=== PATIENT | male | born 1970 ===

== ENCOUNTER 2016-05-13 07:47 | Observation (INO) | payer OTHER ==
[2016-05-13 07:51] VITALS: BMI 24.9
[2016-05-13] MEDS ORDERED: Sodium Chloride 0.9% 1,000 ML IV STA (08:57)
[2016-05-13 09:32] LABS: BASO % 0.5 % (0.0-2.0); EOS # 0.2 K/uL (0.0-0.7); EOS % 2.7 % (0.0-4.0); HEMATOCRIT 43.7 % (35.0-51.0); LYMPH # 2.7 K/uL (1.0-4.3); LYMPH % 45.7 % (20.0-40.0); MEAN CELL VOLUME 86.6 fL (80.0-94.0); MEAN CORPUSCULAR HEMOGLOBIN 29.4 pg (27.0-31.0); MEAN CORPUSCULAR HGB CONC 33.9 g/dL (33.0-37.0); MEAN PLATELET VOLUME 7.6 fL (7.2-11.7); MONO # 0.4 K/uL (0.0-0.8); MONO % 6.1 % (0.0-10.0); NRBC % 0.1 % (0.0-2.0); RED CELL DISTRIBUTION WIDTH 13.9 % (11.5-14.5)
[2016-05-13 09:35] LABS: RBC URINE < 1 /hpf (0-3); URINE BILIRUBIN NEGATIVE (NEGATIVE); URINE BLOOD 1+ (NEGATIVE); URINE COLOR Colorless (YELLOW); URINE GLUCOSE (UA) NORMAL (Normal); URINE KETONE NEGATIVE (NEGATIVE); URINE LEUKOCYTE ESTERASE NEG Leu/uL (Negative); URINE PROTEIN NEGATIVE (NEGATIVE); URINE UROBILINOGEN NORMAL mg/dL (0.2-1.0); WBC URINE < 1 /hpf (0-5)
[2016-05-13 09:45] LABS: CHLORIDE 99 mmol/L (98-107); SODIUM 140 mmol/L (132-148)
[2016-05-13 09:47] LABS: BILIRUBIN,TOTAL 0.4 mg/dL (0.2-1.3); CARBON DIOXIDE 25 mmol/L (22-30); GFR AFRICAN-AMERICAN > 60
[2016-05-13 09:48] LABS: ALB/GLOB RATIO 1.3 (1.0-2.1); ALKALINE PHOSPHATASE 82 U/L (38-126); ALT/SGPT 68 U/L (21-72); AST/SGOT 47 U/L (17-59); BLOOD UREA NITROGEN 14 mg/dL (9-20); CALCIUM 8.8 mg/dl (8.6-10.4); GLUCOSE,RANDOM 91 mg/dL (75-110); TOTAL PROTEIN 7.7 g/dL (6.3-8.3)
[2016-05-13] MEDS ORDERED: Sodium Chloride 0.9% 1,000 ML ONE ×2 (09:48→17:12)
--- NOTE | 2016-05-13 09:48 | C.PDOC ---
History Of Present Illness 46 y/o male presents to the ED complaining of feeling dizzy since yesterday. He states that it feels like the room is spinning. Patient also reports that this morning when he woke up he had midsternal chest pain but it resolved spontaneously after approximately 15-20 minutes. Patient admits to some nausea and blurred vision but denies any vomiting, fever, chills, shortness of breath, abdominal pain or other complaints. Time Seen by Provider: 05/13/16 08:09 Chief Complaint (Nursing): Dizziness/Lightheaded History Per: Patient History/Exam Limitations: no limitations Onset/Duration Of Symptoms: Days (1), Persistent Current Symptoms Are (Timing): Still Present Fall Associated With With Symptoms: No Recent travel outside of the [place]: No Past Medical History Reviewed: Historical Data, Nursing Documentation, Vital Signs Vital Signs: Last Vital Signs Temp 97.5 F L 05/13/16 07:51 Pulse 48 L 05/13/16 11:05 Resp 20 05/13/16 11:05 BP 113/74 05/13/16 11:05 Pulse Ox 96 05/13/16 11:05 - Medical History PMH: Anxiety Surgical History: Appendectomy - [facility] Procedures RESECTION OF APPENDIX, PERCUTANEOUS ENDOSCOPIC APPROACH (12/31/15) Family History: States: No Known Family Hx - Social History Hx Tobacco Use: No Hx Alcohol Use: Yes Hx Substance Use: No - Immunization History Hx Tetanus Toxoid Vaccination: No Hx Influenza Vaccination: Yes (2016) Hx Pneumococcal Vaccination: No Review Of Systems Except As Marked, All Systems Reviewed And Found Negative. Constitutional: Negative for: Fever, Chills Eyes: Positive for: Other (blurred vision) Cardiovascular: Positive for: Chest Pain (resolved) Respiratory: Negative for: Shortness of Breath Gastrointestinal: Negative for: Vomiting, Abdominal Pain Neurological: Positive for: Dizziness Physical Exam - Physical Exam Appears: Non-toxic, No Acute Distress Skin: Normal Color, Warm, Dry Head: Atraumatic, Normacephalic Eye(s): bilateral: Normal Inspection, PERRL, EOMI Neck: Normal ROM, Supple Chest: Symmetrical, No Tenderness Cardiovascular: Rhythm Regular Respiratory: Normal Breath Sounds, No Rales, No Rhonchi, No Wheezing Gastrointestinal/Abdominal: Normal Exam, Soft, No Tenderness Back: Normal Inspection Extremity: Normal ROM, No Tenderness, No Swelling Neurological/Psych: Oriented x3, Normal Speech, Normal Cognition, Normal Cranial Nerves (II-XII intact), Normal Motor, Normal Sensation ED Course And Treatment - Laboratory Results Result Diagrams: 05/13/16 09:27 05/13/16 09:27 ECG: Interpreted By Me ECG Rhythm: Sinus Bradycardia ECG Interpretation: No Acute Changes Rate From EC (bpm) O2 Sat by Pulse Oximetry: 95 (ra) Pulse Ox Interpretation: Normal - Other Rad Chest X-Ray X-Ray: Viewed By Me, Read By Radiologist Interpretation: Accession No. : [id number]. Patient Name / ID : FREDERICK DILL / [id number]. Exam Date : 05/13/2016 09:22:17 ( Approved ). Study Comment : Sex / Age : M / 46Y. Creator : Alistair Muñoz MD. Dictator : Alistair Muñoz MD. Funeral Driver : Used Car Lot Attendant : Alistair Muñoz MD. Approver2 : Report Date : 05/13/2016 10:12:28. My Comment : . PROCEDURE: CHEST RADIOGRAPH, 1 VIEW. HISTORY: dizzy, CP. COMPARISON: None available. FINDINGS: LUNGS: Clear. PLEURA: No pneumothorax or pleural fluid seen. CARDIOVASCULAR: Normal. OSSEOUS STRUCTURES: No significant abnormalities. VISUALIZED UPPER ABDOMEN: Normal. OTHER FINDINGS: None. IMPRESSION: No active disease. - CT Scan/US CT Head Other Rad Studies (CT/US): Read By Radiologist, Radiology Report Reviewed CT/US Interpretation: Accession No. : [id number]. Patient Name / ID : FREDERICK DILL / [id number]. Exam Date : 05/13/2016 09:34:59 ( Approved ). Study Comment : Sex / Age : M / 46Y. Creator : Alistair Muñoz MD. Dictator : Alistair Muñoz MD. Funeral Driver : [employer] Car Lot Attendant : Alistair Muñoz MD. Approver2 : Report Date : 05/13/2016 09:55:25. My Comment : . PROCEDURE: CT HEAD WITHOUT CONTRAST. HISTORY: Dizzy, CP. COMPARISON: None available. TECHNIQUE: Axial computed tomography images were obtained through the head/brain without intravenous contrast. Radiation dose: Total exam DLP = 915 mGy-cm. FINDINGS: HEMORRHAGE: No intracranial hemorrhage. BRAIN: No mass effect or edema. No atrophy or chronic microvascular ischemic changes. VENTRICLES: Unremarkable. No hydrocephalus. CALVARIUM: Unremarkable. PARANASAL SINUSES: Unremarkable as visualized. No significant inflammatory changes. MASTOID AIR CELLS: Unremarkable as visualized. No inflammatory changes. OTHER FINDINGS: None. IMPRESSION: Normal CT of the Head. Progress Note: CT head, EKG, Chest X-Ray, Blood Work, and Urinalysis were ordered. Patient was treated with Antivert PO and IV Fluids. Patient was accepted to telemetry observation under the care of Dr. Asiya Marte. Disposition - Disposition Disposition: HOSPITALIZED Disposition Time: 10:58 Condition: FAIR - Clinical Impression Clinical Impression: Dizziness, Chest pain - PA / SHELL REPRINT OPERATOR / Resident Statement MD/DO has reviewed & agrees with the documentation as recorded. - Scribe Statement The provider has reviewed the documentation as recorded by the Scribe (Cristina Easton) All medical record entries made by the Scribe were at my direction and personally dictated by me. I have reviewed the chart and agree that the record accurately reflects my personal performance of the history, physical exam, medical decision making, and the department course for this patient. I have also personally directed, reviewed, and agree with the discharge instructions and disposition. Decision To Admit - Pt Status Changed To: Hospital Disposition Of: Observation - . Bed Request Type: Telemetry Admitting Physician: Asiya Marte Patient Diagnosis: Dizziness, Chest pain
--- NOTE | 2016-05-13 09:57 | CT ---
PROCEDURE: CT HEAD WITHOUT CONTRAST. HISTORY: Dizzy, CP COMPARISON: None available. TECHNIQUE: Axial computed tomography images were obtained through the head/brain without intravenous contrast. Radiation dose: Total exam DLP = 915 mGy-cm. FINDINGS: HEMORRHAGE: No intracranial hemorrhage. BRAIN: No mass effect or edema. No atrophy or chronic microvascular ischemic changes. VENTRICLES: Unremarkable. No hydrocephalus. CALVARIUM: Unremarkable. PARANASAL SINUSES: Unremarkable as visualized. No significant inflammatory changes. MASTOID AIR CELLS: Unremarkable as visualized. No inflammatory changes. OTHER FINDINGS: None. IMPRESSION: Normal CT of the Head.
--- NOTE | 2016-05-13 10:14 | RAD ---
PROCEDURE: CHEST RADIOGRAPH, 1 VIEW HISTORY: dizzy, CP COMPARISON: None available. FINDINGS: LUNGS: Clear. PLEURA: No pneumothorax or pleural fluid seen. CARDIOVASCULAR: Normal. OSSEOUS STRUCTURES: No significant abnormalities. VISUALIZED UPPER ABDOMEN: Normal. OTHER FINDINGS: None. IMPRESSION: No active disease.
[2016-05-13] MEDS ORDERED: Gadodiamide 287 MG/ML VIAL (15ML) IV ONE (16:00)
[2016-05-13] MEDS ORDERED: Sodium Chloride 0.9% 1,000 ML IV SCH (16:00)
--- NOTE | 2016-05-13 17:12 | MRI ---
PROCEDURE: MRI BRAIN WITH AND WITHOUT CONTRAST HISTORY: vertical double vision dizziness COMPARISON: None. TECHNIQUE: Multiplanar, multisequence MR images of the brain were obtained with and without intravenous contrast enhancement. 13 cc of Omniscan FINDINGS: HEMORRHAGE: None DWI: No evidence of an acute or early subacute infarction. BRAIN PARENCHYMA: No mass,mass effect or edema. No atrophy or chronic microvascular ischemic changes. ENHANCEMENT: No abnormal intracranial enhancement. VENTRICLES: Unremarkable. No hydrocephalus. CRANIUM: Unremarkable. ORBITS: Grossly unremarkable. PARANASAL SINUSES/MASTOIDS: Clear VASCULAR SYSTEM: Skull base flow voids intact. OTHER FINDINGS: None . IMPRESSION: Unremarkable pre and post contrast enhanced MRI of the brain.
[2016-05-13] MEDS: Aritificial Tears (15ml) OU SCH (17:33)
--- NOTE | 2016-05-13 18:21 | CP.PCM.HP ---
<Lyudmila Cramer - Last Filed: 05/13/16 18:37> History of Present Illness - History of Present Illness History of Present Illness: CC - "Dizziness and blurry/double vision" HPI - 46 y/o male presents to the ED complaining of feeling dizzy since yesterday. He states that it feels like the room is spinning. He reports that when he woke up yesterday morning he was dizzy like "I am sitting in a hammock" , and also associated with lateral double and blurry vision. He states that he has never experienced this before. He has not had eye problems in the past and has no seen and eye doctor. He reports itchiness to the R eye but denies pain and denies pain with ocular movements. The patient denies trauma to the eyes. He denies crust, discharge, or bleeding from the eyes. He denies floaters or flashing lights. He did not spill anything in his eye and he is not using any new lotions, cologne or fragrances. He reports that it is difficult for him to "read lines in a book". Per the ED note the patient also reports that this morning when he woke up he had midsternal chest pain but it resolved spontaneously after approximately 15-20 minutes. He is not having chest pain now and this has not occurred in the past. Patient admits to some nausea but all other complaints denied vomiting, fever, chills, shortness of breath, abdominal pain or other complaints. PMHX - appendicitis, does not follow up with any doctors, can't remember the last time he saw one Surg - laparoscopic appendectomy 12/31/15 Meds - none Allergies - pollen Fam Hx - mother diabetes Social - denies drug, alcohol, tobacco use. he works at a [employer] station PMD - none, has missed clinic visits at [facility] because he stated he felt fine so he didn't go Present on Admission - Present on Admission Any Indicators Present on Admission: No Review of Systems - Constitutional Constitutional: absent: Chills, Fever - EENT Eyes: Blurred Vision, Change in Vision, Diplopia, Dry Eye. absent: Blind Spots , Discharge, Floaters, Photophobia, Sees Flashes, Spots in Vision, Loss of Vision Ears: Dizziness. absent: Decreased Hearing, Ear Discharge, Ear Pain, Tinnitus, Abnormal Hearing Nose/Mouth/Throat: absent: Nasal Congestion, Nasal Discharge, Sinus Pain, Sinus Pressure, Dysphagia, Sore Throat, Facial Pain, Neck Pain - Cardiovascular Cardiovascular: absent: Chest Pain, Chest Pain at Rest, Diaphoresis, Leg Edema, Palpitations, Pedal Edema, Syncope - Respiratory Respiratory: absent: Cough, Dyspnea, Dyspnea on Exertion - Gastrointestinal Gastrointestinal: Nausea. absent: Abdominal Pain, Constipation, Diarrhea, Vomiting - Genitourinary Genitourinary: absent: Change in Urinary Stream, Difficulty Urinating - Musculoskeletal Musculoskeletal: absent: Abnormal Gait, Arthralgias, Back Pain, Muscle Cramps, Muscle Weakness, Neck Pain, Numbness, Tingling - Neurological Neurological: Dizziness, Vertigo, Other Visual Disturbances (as described above) . absent: Abnormal Hearing, Numbness, Headaches, Sensory Deficit, Syncope, Tingling, Weakness - Endocrine Endocrine: absent: Fatigue, Palpitations - Hematologic/Lymphatic Hematologic: absent: Easy Bleeding, Easy Bruising Past Patient History - Infectious Disease Hx of Infectious Diseases: None - Past Medical History & Family History Past Medical History?: No - Past Social History Smoking Status: Never Smoked - CARDIAC Hx Cardiac Disorders: No - PULMONARY Hx Respiratory Disorders: No - NEUROLOGICAL Hx Neurological Disorder: No - HEENT Hx HEENT Problems: No - RENAL Hx Chronic Kidney Disease: No - ENDOCRINE/METABOLIC Hx Diabetes Mellitus Type 1: No Hx Diabetes Mellitus Type 2: No - HEMATOLOGICAL/ONCOLOGICAL Hx Blood Disorders: No - INTEGUMENTARY Hx Dermatological Problems: No - MUSCULOSKELETAL/RHEUMATOLOGICAL Hx Musculoskeletal Disorders: No Hx Falls: No - GENITOURINARY/GYNECOLOGICAL Hx Genitourinary Disorders: No - PSYCHIATRIC Hx Anxiety: Yes Hx Substance Use: No - SURGICAL HISTORY Hx Appendectomy: Yes - ANESTHESIA Hx Anesthesia: No (this admission first time) Hx Anesthesia Reactions: No Hx Malignant Hyperthermia: No Meds Allergies/Adverse Reactions: Allergies Allergy/AdvReac Type Severity Reaction Status Date / Time No Known Allergies Allergy Verified 05/13/16 07:50 Physical Exam - Constitutional Appears: Non-toxic, No Acute Distress - Head Exam Head Exam: ATRAUMATIC, NORMAL INSPECTION - Eye Exam Eye Exam: Conjunctival injection, EOMI. absent: Periorbital swelling, Scleral icterus Pupil Exam: NORMAL ACCOMODATION, PERRL Additional comments: b/l erythema more on the R, no signs of trauma, no blood, visual mariano in tact , visual screening wnl, no discharged noted. EOMI slow at tracking, no nystagmus , equil and reactive - ENT Exam ENT Exam: Mucous Membranes Moist - Neck Exam Neck exam: Positive for: Normal Inspection - Respiratory Exam Respiratory Exam: Clear to Auscultation Bilateral, NORMAL BREATHING PATTERN. absent: Accessory Muscle Use, Chest Wall Tenderness, Rales, Rhonchi, Wheezes, Respiratory Distress - Cardiovascular Exam Cardiovascular Exam: REGULAR RHYTHM, +S1, +S2. absent: Diastolic murmur, JVD, Systolic Murmur - GI/Abdominal Exam GI & Abdominal Exam: Normal Bowel Sounds, Soft. absent: Distended, Guarding, Tenderness - Extremities Exam Extremities exam: Positive for: full ROM, normal inspection, pedal pulses present. Negative for: calf tenderness, pedal edema - Back Exam Back exam: NORMAL INSPECTION. absent: CVA tenderness (L), CVA tenderness (R), paraspinal tenderness - Neurological Exam Neurological exam: Alert, CN II-XII Intact, Oriented x3 - Psychiatric Exam Psychiatric exam: Normal Affect, Normal Mood - Skin Skin Exam: Dry, Intact, Normal Color, Warm Results - Vital Signs Recent Vital Signs: Last Vital Signs Temp 97.7 F 05/13/16 17:47 Pulse 60 05/13/16 17:47 Resp 20 05/13/16 17:47 BP 103/65 05/13/16 17:47 Pulse Ox 95 05/13/16 17:50 - Labs Result Diagrams: 05/13/16 09:27 05/13/16 09:27 Assessment & Plan - Assessment and Plan (Free Text) Assessment: Diplopia Vertical, with blurry vision Heat CT - negative, no intracranial bleed or actue pathology MRI brain w and w/o contrast - normal Optho consulted, Dr. Franco consulted - Pt can follow up in office [address] at 9 AM this Tuesday Artifical tears Dizziness likely vertigo Neurology consulted, Dr. Duarte consulted - help appreciated, all orders are placed Heat CT - negative, no intracranial bleed or actue pathology MRI brain w and w/o contrast - normal UA - 1+ blood otherwise normal UDS - negative Meclizine prn Chest pain Resolved but will rule out ND with troponins Chest X ray - no active disease EKG - NSR bradycardia at 57 bpm Troponin neg x 2 will trend a third troponin with another EKG f/u AM labs, tsh/free t4, lipid panel, HbA1c ASA 81 mg PO daily Prophylactic Measures Pepcid 20 mg PO BID DVT - SCDs Heart healthy diet Physical therapy NS at 100 cc/hour <Asiya Marte V - Last Filed: 05/14/16 10:49> Results - Vital Signs Recent Vital Signs: Last Vital Signs Temp 98 F 05/14/16 07:05 Pulse 60 05/14/16 07:05 Resp 17 05/14/16 07:05 BP 109/66 05/14/16 07:05 Pulse Ox 95 05/14/16 07:05 - Labs Result Diagrams: 05/14/16 01:04 05/14/16 01:04 Labs: Laboratory Results - last 24 hr 05/13/16 05/14/16 05/14/16 18:07 01:04 04:12 WBC 6.7 RBC 4.88 Hgb 14.2 Hct 42.4 MCV 87.0 MCH 29.2 MCHC 33.6 RDW 13.5 Plt Count 255 MPV 7.0 L Neut % (Auto) 49.3 L Lymph % (Auto) 40.9 H Orange % (Auto) 5.7 Eos % (Auto) 3.5 Baso % (Auto) 0.6 Neut # 3.3 Lymph # 2.7 Orange # 0.4 Eos # 0.2 Baso # 0.0 ESR 3 Sodium 140 Potassium 4.3 Chloride 106 Carbon Dioxide 24 Anion Gap 14 BUN 14 Creatinine 1.0 Est GFR ( Amer) > 60 Est GFR (Non-Af Amer) > 60 Random Glucose 92 Hemoglobin A1c 5.9 Calcium 8.2 L Phosphorus 3.9 Magnesium 1.8 Total Bilirubin 0.6 AST 35 ALT 65 Alkaline Phosphatase 58 Total Creatine Kinase 129 115 CK-MB (Mass) 0.53 0.38 Troponin I, Quant < 0.0120 < 0.0120 C-React Prot High Sens 0.68 L Total Protein 6.5 Albumin 3.4 L D Globulin 3.1 Albumin/Globulin Ratio 1.1 Triglycerides 279 H Cholesterol 182 LDL Cholesterol Direct 110 HDL Cholesterol 17 L Free T4 0.82 TSH 3rd Generation 5.47 H Attending/Attestation - Attestation I have personally seen and examined this patient.: Yes I have fully participated in the care of the patient.: Yes I have reviewed all pertinent clinical information: Yes Notes (Text): This is late computer entry for 05/13/16. Patient seen, examined, and case discussed with day-time resident. Patient seen in [facility] on 05/13/16 seen approximately 1:30PM with the resident at bedside. Patient reporting a day and half history of double vision. Patient reports he sees images on top of each of each other. patient denies pain and denies pain within the eye. Patient does not wear eye glasses. patient denies trauma to head , denies prior history of car accidents. Patient reports he has not seen a doctor in quite sometime and has not had his eyes checked. Patient works at [employer], denies chemical splashover, does not wear protective wear. Patient denies discharge from the eyes. patient reports itchiness over the eye right and reports seasonal allergies. Patient denies URI type symptoms, denies cough, denies lightheaded, denies chest pain now but reports this morning he had fluttering in the chest, at rest, lasted for seconds, did not take anything for it but it resolved on its own. Patient reports unsteady gait. Patient denies passing out. Patient denies drug use. In the ED, received Aspirin 325mg PO X1 and CT Head: negative Discussed admitting orders with day-time resident. Recommend for neurology and ophthalmology consults. Assessment/Plan 1) Diplopia Vertical, with blurry vision Heat CT (05/13/16) - negative, no intracranial bleed or actue pathology ordered and completed MRI brain w and w/o contrast (05/13/16) - normal Ordered for Artifical tears Consult: Dr Duarte (neurology) on board-->help appreciated Consult: Dr. Franco (ophthalmology) on board-->help appreciated; recommended pt can follow up in office [address] at 9 AM this Tuesday 2) Dizziness likely vertigo Consult: Dr Duarte (neurology) on board-->help appreciated Heat CT (05/13/16) - negative, no intracranial bleed or actual pathology MRI brain w and w/o contrast (05/13/16) - normal UA - 1+ blood otherwise normal-->repeat UA UDS - negative Meclizine prn 3) Chest pain Resolved at bedside Patient has no prior cardiac risk factors Chest X ray (3/30/17) - no active disease EKG (05/13/16) - NSR bradycardia at 57 bpm Troponin neg x 2 will trend a third troponin with another EKG f/u AM labs, tsh/free t4, lipid panel, HbA1c in AM ASA 81 mg PO daily as prophylactic measure 4) Prophylactic Measures Pepcid 20 mg PO BID for GI ppx DVT - SCDs for DVT ppx PT Eval Heart healthy diet NS at 100 cc/hour
--- NOTE | 2016-05-13 20:32 | CARD ---
APPROVED REPORT EXAM: Two-dimensional and M-mode echocardiogram with Doppler and color Doppler. Other Information Quality : GoodRhythm : NSR INDICATION Dizziness and Vertigo Chest Pain M-Mode DIMENSIONS RVDd2.08 (2.1-3.2cm)Left Atrium (MM)2.57 (2.5-4.0cm) IVSd0.88 (0.7-1.1cm)Aortic Root3.48 (2.2-3.7cm) LVDd5.37 (4.0-5.6cm)Aortic Cusp Exc.2.11 (1.5-2.0cm) PWd0.85 (0.7-1.1cm)FS (%) 45 % LVDs2.93 (2.0-3.8cm)LVEF (%)76 (>50%) Mitral Valve MV E Flewhuyi87.2cm/sMV A Wsjmasbw32.7cm/sE/A ratio1.5 TDI E/Lateral E'0.0E/Medial E'0.0 Tricuspid Valve TR Peak [id number]/sTR Peak [id number] LEFT VENTRICLE The left ventricle is normal size. There is normal left ventricular wall thickness. The left ventricular function is normal. The left ventricular ejection fraction is within the normal range. About 65% No regional wall motion abnormalities noted. The left ventricular diastolic function is normal. No left ventricle thrombus noted on this study. There is no ventricular septal defect visualized. There is no left ventricular aneurysm. There is no mass noted in the left ventricle. RIGHT VENTRICLE The right ventricle is normal size. There is normal right ventricular wall thickness. The right ventricular systolic function is normal. ATRIA The left atrium size is normal. The right atrium size is normal. The interatrial septum is intact with no evidence for an atrial septal defect. AORTIC VALVE The aortic valve is normal in structure and function. No aortic regurgitation is present. There is no aortic valvular stenosis. There is no aortic valvular vegetation. MITRAL VALVE The mitral valve is normal in structure and function. There is no evidence of mitral valve prolapse. There is no mitral valve stenosis. There is no mitral valve regurgitation noted. TRICUSPID VALVE The tricuspid valve is normal in structure and function. There is mild tricuspid valve regurgitation noted. There is no tricuspid valve prolapse or vegetation. There is no tricuspid valve stenosis. PULMONIC VALVE The pulmonary valve is normal in structure and function. There is no pulmonic valvular regurgitation. There is no pulmonic valvular stenosis. GREAT VESSELS The aortic root is normal in size. The ascending aorta is normal in size. The pulmonary artery is normal. The IVC is normal in size and collapses >50% with inspiration. PERICARDIAL EFFUSION The pericardium appears normal. There is no pleural effusion. <Conclusion> Normal Study
[2016-05-14 01:09] LABS: BASO % 0.6 % (0.0-2.0); EOS # 0.2 K/uL (0.0-0.7); EOS % 3.5 % (0.0-4.0); HEMATOCRIT 42.4 % (35.0-51.0); LYMPH # 2.7 K/uL (1.0-4.3); LYMPH % 40.9 % (20.0-40.0); MEAN CORPUSCULAR HEMOGLOBIN 29.2 pg (27.0-31.0); MEAN CORPUSCULAR HGB CONC 33.6 g/dL (33.0-37.0); MONO # 0.4 K/uL (0.0-0.8); MONO % 5.7 % (0.0-10.0); RED CELL DISTRIBUTION WIDTH 13.5 % (11.5-14.5); WHITE BLOOD COUNT 6.7 K/uL (4.8-10.8)
[2016-05-14 01:23] LABS: CHLORIDE 106 mmol/L (98-107); SODIUM 140 mmol/L (132-148)
[2016-05-14 01:24] LABS: POTASSIUM 4.3 mmol/L (3.6-5.2)
[2016-05-14 01:25] LABS: CARBON DIOXIDE 24 mmol/L (22-30); CHOLESTEROL 182 mg/dL (0-199); GFR AFRICAN-AMERICAN > 60
[2016-05-14 01:26] LABS: ALB/GLOB RATIO 1.1 (1.0-2.1); ALKALINE PHOSPHATASE 58 U/L (38-126); ALT/SGPT 65 U/L (21-72); AST/SGOT 35 U/L (17-59); BILIRUBIN,TOTAL 0.6 mg/dL (0.2-1.3); BLOOD UREA NITROGEN 14 mg/dL (9-20); CALCIUM 8.2 mg/dl (8.6-10.4); GLUCOSE,RANDOM 92 mg/dL (75-110); PHOSPHOROUS 3.9 mg/dL (2.5-4.5); TOTAL PROTEIN 6.5 g/dL (6.3-8.3)
[2016-05-14 01:27] LABS: MAGNESIUM 1.8 mg/dL (1.6-2.3)
[2016-05-14 02:00] LABS: THYROID STIMULATING HORMONE 5.47 mIU/L (0.46-4.68)
[2016-05-14] MEDS: Aritificial Tears (15ml) OU SCH (09:36)
--- NOTE | 2016-05-14 12:01 | CP.PCM.CON ---
History of Present Illness - History of Present Illness History of Present Illness: Mr. José Escoto is a 46-year-old man with no significant past medical history who states that he has been feeling dizzy for the last few days and has also been experiencing difficulty with his vision. The dizziness is more clearly described as a spinning sensation or feeling like he is swinging. He was given Meclizine and states that today his dizziness is gone. He still complains of some blurry vision and itchy eyes. This morning he was having a headache that is located on the top of the head and radiates toward the front. It is a 3/10 in severity. He denied nausea, vomiting, weakness, sensory loss or any difficulty with ambulation. Review of Systems - Review of Systems All systems: reviewed and no additional remarkable complaints except - Constitutional Constitutional: As Per HPI - EENT Eyes: As Per HPI Nose/Mouth/Throat: As Per HPI - Musculoskeletal Musculoskeletal: As Per HPI - Neurological Neurological: As Per HPI - Psychiatric Psychiatric: As Per HPI Past Patient History - Infectious Disease Hx of Infectious Diseases: None - Past Medical History & Family History Past Medical History?: No - Past Social History Smoking Status: Never Smoked - CARDIAC Hx Cardiac Disorders: No - PULMONARY Hx Respiratory Disorders: No - NEUROLOGICAL Hx Neurological Disorder: No - HEENT Hx HEENT Problems: No - RENAL Hx Chronic Kidney Disease: No - ENDOCRINE/METABOLIC Hx Diabetes Mellitus Type 1: No Hx Diabetes Mellitus Type 2: No - HEMATOLOGICAL/ONCOLOGICAL Hx Blood Disorders: No - INTEGUMENTARY Hx Dermatological Problems: No - MUSCULOSKELETAL/RHEUMATOLOGICAL Hx Musculoskeletal Disorders: No Hx Falls: No - GENITOURINARY/GYNECOLOGICAL Hx Genitourinary Disorders: No - PSYCHIATRIC Hx Anxiety: Yes Hx Substance Use: No - SURGICAL HISTORY Hx Appendectomy: Yes - ANESTHESIA Hx Anesthesia: Yes Hx Anesthesia Reactions: No Hx Malignant Hyperthermia: No Meds Allergies/Adverse Reactions: Allergies Allergy/AdvReac Type Severity Reaction Status Date / Time No Known Allergies Allergy Verified 05/13/16 07:50 - Medications Medications: Current Medications Artificial Tears (Artificial Tears) 0 ml OU DAILY [facility] Last Admin: 05/14/16 09:36 Dose: 1 drop Aspirin (Aspirin Chewable) 81 mg PO DAILY [facility] Last Admin: 05/14/16 09:36 Dose: 81 mg Famotidine (Pepcid) 20 mg PO BID [facility] Last Admin: 05/14/16 09:36 Dose: 20 mg Meclizine HCl (Antivert) 12.5 mg PO Q12 PRN PRN Reason: Dizziness Physical Exam - Constitutional Appears: Well - Head Exam Head Exam: ATRAUMATIC, NORMAL INSPECTION, NORMOCEPHALIC - Eye Exam Eye Exam: Conjunctival injection, EOMI, Normal appearance, PERRL - Neck Exam Neck exam: Positive for: Normal Inspection - Cardiovascular Exam Cardiovascular Exam: REGULAR RHYTHM - Neurological Exam Neurological exam: Alert, CN II-XII Intact, Normal Gait, Oriented x3, Reflexes Normal - Expanded Neurological Exam Expanded Cranial nerves: EOM's Intact: Normal, Facial Sensation: Normal, Tongue Deviation : Normal Cerebellar Function: Finger to Nose: Normal, Heel to Head: Normal, Romberg: Normal Upper motor neuron: Babinski Sign: Normal Neuro motor strength exam: Left Upper Extremity: 5, Right Upper Extremity: 5, Left Lower Extremity: 5, Right Lower Extremity: 5 DTR: Achilles Tendon Left: 2+, Achilles Tendon Right: 2+, Bicep Left: 2+, Bicep Right: 2+, Brachioradialis Left: 2+, Brachioradialis Right: 2+, Patellar Left: 2 +, Patellar Right: 2+, Tricep Left: 2+, Tricep Right: 2+ Results - Vital Signs Recent Vital Signs: Last Vital Signs Temp 98 F 05/14/16 07:05 Pulse 60 05/14/16 07:05 Resp 17 05/14/16 07:05 BP 109/66 05/14/16 07:05 Pulse Ox 95 05/14/16 07:05 - Labs Result Diagrams: 05/14/16 01:04 05/14/16 01:04 Labs: Laboratory Results - last 24 hr 05/13/16 05/14/16 05/14/16 18:07 01:04 04:12 WBC 6.7 RBC 4.88 Hgb 14.2 Hct 42.4 MCV 87.0 MCH 29.2 MCHC 33.6 RDW 13.5 Plt Count 255 MPV 7.0 L Neut % (Auto) 49.3 L Lymph % (Auto) 40.9 H [place] % (Auto) 5.7 Eos % (Auto) 3.5 Baso % (Auto) 0.6 Neut # 3.3 Lymph # 2.7 [place] # 0.4 Eos # 0.2 Baso # 0.0 ESR 3 Sodium 140 Potassium 4.3 Chloride 106 Carbon Dioxide 24 Anion Gap 14 BUN 14 Creatinine 1.0 Est GFR ( Amer) > 60 Est GFR (Non-Af Amer) > 60 Random Glucose 92 Hemoglobin A1c 5.9 Calcium 8.2 L Phosphorus 3.9 Magnesium 1.8 Total Bilirubin 0.6 AST 35 ALT 65 Alkaline Phosphatase 58 Total Creatine Kinase 129 115 CK-MB (Mass) 0.53 0.38 Troponin I, Quant < 0.0120 < 0.0120 C-React Prot High Sens 0.68 L Total Protein 6.5 Albumin 3.4 L D Globulin 3.1 Albumin/Globulin Ratio 1.1 Triglycerides 279 H Cholesterol 182 LDL Cholesterol Direct 110 HDL Cholesterol 17 L Free T4 0.82 TSH 3rd Generation 5.47 H - Imaging and Cardiology MRI - head Status: Image reviewed by me, Report reviewed by me (Normal MRI brain with and without contrast.) Assessment & Plan (1) Dizziness Status: Acute Priority: Medium - Assessment and Plan (Free Text) Assessment: Likely vertigo due to underlying benign positional paroxysmal etiology. However , another possibility is vestibular neuronitis that is probably viral. I recommend continuing meclizine since it is helping. May follow up with outpatient neurology.
[2016-05-14 15:31] VITALS: BP 119/67; PULSE 73; RESP 18; TEMP 97.9; O2SAT 97
--- NOTE | 2016-05-14 18:59 | CP.PCM.DIS ---
<Nash Astudillo - Last Filed: 05/15/16 03:07> Provider - Provider Date of Admission: 05/13/16 11:01 Attending physician: Asiya Marte DO Consults: Neuro: Helder Sears Time Spent in preparation of Discharge (in minutes): 40 Hospital Course - Lab Results Lab Results: Most Recent Lab Values WBC 6.7 K/uL (4.8-10.8) 05/14/16 01:04 RBC 4.88 Mil/uL (4.40-5.90) 05/14/16 01:04 Hgb 14.2 g/dL (12.0-18.0) 05/14/16 01:04 Hct 42.4 % (35.0-51.0) 05/14/16 01:04 MCV 87.0 fL (80.0-94.0) 05/14/16 01:04 MCH 29.2 pg (27.0-31.0) 05/14/16 01:04 MCHC 33.6 g/dL (33.0-37.0) 05/14/16 01:04 RDW 13.5 % (11.5-14.5) 05/14/16 01:04 Plt Count 255 K/uL (130-400) 05/14/16 01:04 MPV 7.0 fL (7.2-11.7) L 05/14/16 01:04 Neut % (Auto) 49.3 % (50.0-75.0) L 05/14/16 01:04 Lymph % (Auto) 40.9 % (20.0-40.0) H 05/14/16 01:04 [place] % (Auto) 5.7 % (0.0-10.0) 05/14/16 01:04 Eos % (Auto) 3.5 % (0.0-4.0) 05/14/16 01:04 Baso % (Auto) 0.6 % (0.0-2.0) 05/14/16 01:04 Neut # 3.3 K/uL (1.8-7.0) 05/14/16 01:04 Lymph # 2.7 K/uL (1.0-4.3) 05/14/16 01:04 [place] # 0.4 K/uL (0.0-0.8) 05/14/16 01:04 Eos # 0.2 K/uL (0.0-0.7) 05/14/16 01:04 Baso # 0.0 K/uL (0.0-0.2) 05/14/16 01:04 ESR 3 mm/hr (0-15) 05/14/16 01:04 PT 11.4 SECONDS (9.7-12.2) 05/13/16 09:27 INR 1.0 05/13/16 09:27 APTT 34 SECONDS (21-34) 05/13/16 09:27 Sodium 140 mmol/L (132-148) 05/14/16 01:04 Potassium 4.3 mmol/L (3.6-5.2) 05/14/16 01:04 Chloride 106 mmol/L (98-107) 05/14/16 01:04 Carbon Dioxide 24 mmol/L (22-30) 05/14/16 01:04 Anion Gap 14 (10-20) 05/14/16 01:04 BUN 14 mg/dL (9-20) 05/14/16 01:04 Creatinine 1.0 MG/DL (0.8-1.5) 05/14/16 01:04 Est GFR ( Amer) > 60 05/14/16 01:04 Est GFR (Non-Af Amer) > 60 05/14/16 01:04 POC Glucose (mg/dL) 87 mg/dL (65-110) 05/13/16 08:04 Random Glucose 92 mg/dL (75-110) 05/14/16 01:04 Hemoglobin A1c 5.9 % (4.2-6.5) 05/14/16 01:04 Calcium 8.2 mg/dl (8.6-10.4) L 05/14/16 01:04 Phosphorus 3.9 mg/dL (2.5-4.5) 05/14/16 01:04 Magnesium 1.8 mg/dL (1.6-2.3) 05/14/16 01:04 Total Bilirubin 0.6 mg/dL (0.2-1.3) 05/14/16 01:04 AST 35 U/L (17-59) 05/14/16 01:04 ALT 65 U/L (21-72) 05/14/16 01:04 Alkaline Phosphatase 58 U/L (38-126) 05/14/16 01:04 Total Creatine Kinase 115 U/L (55-170) 05/14/16 04:12 CK-MB (Mass) 0.38 ng/mL (0.0-3.38) 05/14/16 04:12 Troponin I < 0.0120 ng/mL (0.00-0.120) 05/13/16 09:27 Troponin I, Quant < 0.0120 ng/mL (0.00-0.120) 05/14/16 04:12 C-React Prot High Sens 0.68 mg/L (1.00-3.00) L 05/14/16 01:04 Total Protein 6.5 g/dL (6.3-8.3) 05/14/16 01:04 Albumin 3.4 g/dL (3.5-5.0) L D 05/14/16 01:04 Globulin 3.1 gm/dL (2.2-3.9) 05/14/16 01:04 Albumin/Globulin Ratio 1.1 (1.0-2.1) 05/14/16 01:04 Triglycerides 279 mg/dL (0-149) H 05/14/16 01:04 Cholesterol 182 mg/dL (0-199) 05/14/16 01:04 LDL Cholesterol Direct 110 mg/dL (0-129) 05/14/16 01:04 HDL Cholesterol 17 mg/dL (30-70) L 05/14/16 01:04 Free T4 0.82 ng/dL (0.78-2.19) 05/14/16 04:12 TSH 3rd Generation 5.47 mIU/L (0.46-4.68) H 05/14/16 01:04 Urine Color Colorless (YELLOW) 05/13/16 09:27 Urine Clarity Clear (Clear) 05/13/16 09:27 Urine pH 7.0 (5.0-8.0) 05/13/16 09:27 Ur Specific [place] 1.004 (1.003-1.030) 05/13/16 09:27 Urine Protein Negative mg/dL (NEGATIVE) 05/13/16 09:27 Urine Glucose (UA) Normal mg/dL (Normal) 05/13/16 09:27 Urine Ketones Negative mg/dL (NEGATIVE) 05/13/16 09:27 Urine Blood 1+ (NEGATIVE) H 05/13/16 09:27 Urine Nitrate Negative (NEGATIVE) 05/13/16 09:27 Urine Bilirubin Negative (NEGATIVE) 05/13/16 09:27 Urine Urobilinogen Normal mg/dL (0.2-1.0) 05/13/16 09:27 Ur Leukocyte Esterase Neg [place]/uL (Negative) 05/13/16 09:27 Urine WBC (Auto) < 1 /hpf (0-5) 05/13/16 09:27 Urine RBC (Auto) < 1 /hpf (0-3) 05/13/16 09:27 Urine Opiates Screen Negative (NEGATIVE) 05/13/16 09:27 Urine Methadone Screen Negative (NEGATIVE) 05/13/16 09:27 Ur Barbiturates Screen Negative (NEGATIVE) 05/13/16 09:27 Ur Phencyclidine Scrn Negative (NEGATIVE) 05/13/16 09:27 Ur Amphetamines Screen Negative (NEGATIVE) 05/13/16 09:27 U Benzodiazepines Scrn Negative (NEGATIVE) 05/13/16 09:27 U Oth Cocaine Metabols Negative (NEGATIVE) 05/13/16 09:27 U Cannabinoids Screen Negative (NEGATIVE) 05/13/16 09:27 - Hospital Course Hospital Course: Upon hospital admission: 46 y/o male presents to the ED complaining of feeling dizzy since yesterday. He states that it feels like the room is spinning. He reports that when he woke up yesterday morning he was dizzy like "I am sitting in a hammock", and also associated with lateral double and blurry vision. He states that he has never experienced this before. He has not had eye problems in the past and has no seen and eye doctor. He reports itchiness to the R eye but denies pain and denies pain with ocular movements. The patient denies trauma to the eyes. He denies crust, discharge, or bleeding from the eyes. He denies floaters or flashing lights. He did not spill anything in his eye and he is not using any new lotions, cologne or fragrances. He reports that it is difficult for him to "read lines in a book". Per the ED note the patient also reports that this morning when he woke up he had midsternal chest pain but it resolved spontaneously after approximately 15-20 minutes. He is not having chest pain now and this has not occurred in the past. Patient admits to some nausea but all other complaints denied vomiting, fever, chills, shortness of breath, abdominal pain or other complaints. PMHX - appendicitis, does not follow up with any doctors, can't remember the last time he saw one Surg - laparoscopic appendectomy 12/31/15 Meds - none Allergies - pollen Fam Hx - mother diabetes Social - denies drug, alcohol, tobacco use. he works at a [email or web address] PMD - none, has missed clinic visits at [facility] because he stated he felt fine so he didn't go During hospital course, the patient was evaluated and treated for the following : (1) Diplopia (Vertical) with blurry vision for which Heat CT - negative, no intracranial bleed or actue pathology. MRI brain w and w/o contrast - normal. Optho consulted, Dr. Franco consulted - Pt can follow up in office [address] at 9 AM this Tuesday . Patient tx with Artifical tears. (2) Dizziness, likely vertigo, for which Neurology consulted, Dr. Duarte. Heat CT - negative, no intracranial bleed or actue pathology, MRI brain w and w/ o contrast - normal, UA - 1+ blood otherwise normal, UDS - negative. Patient responded well to Meclizine prn. (3) Chest pain which Resolved. Studies showed Troponin neg x 2 will trend a third troponin with another EKG; Chest X ray - no active disease; EKG - NSR bradycardia at 57 bpm. Triglycerides were moderately elevated at 279; choesterol 182. TSH elevated at 5.47 likely indicating subclinical hyperthroidism. Tx with ASA 81 mg PO daily prophylactically. Upon hospital discharge, the patient was provided with the following instructions: Patient is stable for discharge per Dr. Marte. Patient should resume all medications as outlined in this document. Additionally, patient should take the new medications listed below (scripts provided). 1. Please make an appointment and follow up with your Primary Doctor in the [facility]. You can call [phone] for an appointment. 2. Please follow up with your Eye Doctor, Dr. Franco. The office is located at [address] and your appointment is scheduled for 9 AM this Tuesday [phone]. 3. Please make an appointment and follow up with you Neurologist, Dr. Duarte. Your PMD in the clinic and provide you with a referral. He'd like to see you regarding likely vertigo due to underlying benign positional paroxysmal etiology. 4. You have Pre-Diabetes with an Hgb A1C of 5.9. Please follow up with your PMD in 1 year to be re-evaluated. 5. You have subclinical Hypothyroidism with a TSH of 5.47. Please follow up with your PMD in 3-4 months. Patient should return to ED immediately if symptoms return or worsen. Instructions discussed with patient who understood and agreed. Newly prescribed medications: Meclizine 12.5mg PO Q12 PRN, dizziness (Continue as needed) Artificial Tears 1 drop in both eyes, daily. This is a summary of the patient's hospital admission, see chart for comprehensive detail. - Date & Time of H&P Date of H&P: 05/13/16 Time of H&P: 18:13 Discharge Exam - Additional Findings Additional findings: - Constitutional Appears: Well - Head Exam Head Exam: ATRAUMATIC, NORMAL INSPECTION, NORMOCEPHALIC - Eye Exam Eye Exam: Conjunctival injection, EOMI. absent: Periorbital swelling, Scleral icterus Pupil Exam: NORMAL ACCOMODATION, PERRL Additional comments: b/l erythema more on the R, no signs of trauma, no blood, visual mariano in tact , visual screening wnl, no discharged noted. EOMI slow at tracking, no nystagmus , equil and reactive - Respiratory Exam Respiratory Exam: Clear to Auscultation Bilateral, NORMAL BREATHING PATTERN. absent: Accessory Muscle Use, Chest Wall Tenderness, Rales, Rhonchi, Wheezes, Respiratory Distress - Cardiovascular Exam Cardiovascular Exam: REGULAR RHYTHM, +S1, +S2. absent: Diastolic murmur, JVD, Systolic Murmur - GI/Abdominal Exam GI & Abdominal Exam: Normal Bowel Sounds, Soft. absent: Distended, Guarding, Tenderness - Extremities Exam Extremities exam: Positive for: full ROM, normal inspection, pedal pulses present. Negative for: calf tenderness, pedal edema - Neurological Exam Neurological exam: Alert, CN II-XII Intact, Normal Gait, Oriented x3, Reflexes Normal - Expanded Neurological Exam Expanded Cranial nerves: EOM's Intact: Normal, Facial Sensation: Normal, Tongue Deviation : Normal Cerebellar Function: Finger to Nose: Normal, Heel to Head: Normal, Romberg: Normal Upper motor neuron: Babinski Sign: Normal Neuro motor strength exam: Left Upper Extremity: 5, Right Upper Extremity: 5, Left Lower Extremity: 5, Right Lower Extremity: 5 DTR: Achilles Tendon Left: 2+, Achilles Tendon Right: 2+, Bicep Left: 2+, Bicep Right: 2+, Brachioradialis Left: 2+, Brachioradialis Right: 2+, Patellar Left: 2 +, Patellar Right: 2+, Tricep Left: 2+, Tricep Right: 2+ - Psychiatric Exam Psychiatric exam: Normal Affect, Normal Mood - Skin Skin Exam: Dry, Intact, Normal Color, Warm Discharge Plan - Discharge Medications Prescriptions: Meclizine HCl 12.5 mg PO Q12 PRN 30 Days PRN Reason: Dizziness Polyethylene Glycol/Polyvinyl [Artificial Tears] 1 drop OU DAILY 30 Days - Follow Up Plan Condition: FAIR Disposition: HOME/ ROUTINE Instructions: Meclizine (By mouth), Chest Pain (DC), Heart Healthy Diet (DC), Vertigo (DC), Dizziness (GEN) Additional Instructions: Patient is stable for discharge per Dr. Marte. Patient should resume all medications as outlined in this document. Additionally, patient should take the new medications listed below (scripts provided). 1. Please make an appointment and follow up with your Primary Doctor in the [facility]. You can call [phone] for an appointment. 2. Please follow up with your Eye Doctor, Dr. Franco. The office is located at [address] [place] [address] and your appointment is scheduled for 9 AM this Tuesday [phone]. 3. Please make an appointment and follow up with you Neurologist, Dr. Duarte. Your PMD in the clinic and provide you with a referral. He'd like to see you regarding likely vertigo due to underlying benign positional paroxysmal etiology. 4. You have Pre-Diabetes with an Hgb A1C of 5.9. Please follow up with your PMD in 1 year to be re-evaluated. 5. You have subclinical Hypothyroidism with a TSH of 5.47. Please follow up with your PMD in 3-4 months. Patient should return to ED immediately if symptoms return or worsen. Instructions discussed with patient who understood and agreed. Newly prescribed medications: Meclizine 12.5mg PO Q12 PRN, dizziness (Continue as needed) Artificial Tears 1 drop in both eyes, daily. Referrals: [facility] at [facility] [Outside] Matias Franco MD [Staff Provider] - Helder Duarte MD [Staff Provider] - <Asiya Marte V - Last Filed: 05/24/16 08:30> Provider - Provider Date of Admission: 05/13/16 11:01 Attending physician: Asiya Marte, [facility] Course - Lab Results Lab Results: Most Recent Lab Values WBC 6.7 K/uL (4.8-10.8) 05/14/16 01:04 RBC 4.88 Mil/uL (4.40-5.90) 05/14/16 01:04 Hgb 14.2 g/dL (12.0-18.0) 05/14/16 01:04 Hct 42.4 % (35.0-51.0) 05/14/16 01:04 MCV 87.0 fL (80.0-94.0) 05/14/16 01:04 MCH 29.2 pg (27.0-31.0) 05/14/16 01:04 MCHC 33.6 g/dL (33.0-37.0) 05/14/16 01:04 RDW 13.5 % (11.5-14.5) 05/14/16 01:04 Plt Count 255 K/uL (130-400) 05/14/16 01:04 MPV 7.0 fL (7.2-11.7) L 05/14/16 01:04 Neut % (Auto) 49.3 % (50.0-75.0) L 05/14/16 01:04 Lymph % (Auto) 40.9 % (20.0-40.0) H 05/14/16 01:04 [place] % (Auto) 5.7 % (0.0-10.0) 05/14/16 01:04 Eos % (Auto) 3.5 % (0.0-4.0) 05/14/16 01:04 Baso % (Auto) 0.6 % (0.0-2.0) 05/14/16 01:04 Neut # 3.3 K/uL (1.8-7.0) 05/14/16 01:04 Lymph # 2.7 K/uL (1.0-4.3) 05/14/16 01:04 [place] # 0.4 K/uL (0.0-0.8) 05/14/16 01:04 Eos # 0.2 K/uL (0.0-0.7) 05/14/16 01:04 Baso # 0.0 K/uL (0.0-0.2) 05/14/16 01:04 ESR 3 mm/hr (0-15) 05/14/16 01:04 PT 11.4 SECONDS (9.7-12.2) 05/13/16 09:27 INR 1.0 05/13/16 09:27 APTT 34 SECONDS (21-34) 05/13/16 09:27 Sodium 140 mmol/L (132-148) 05/14/16 01:04 Potassium 4.3 mmol/L (3.6-5.2) 05/14/16 01:04 Chloride 106 mmol/L (98-107) 05/14/16 01:04 Carbon Dioxide 24 mmol/L (22-30) 05/14/16 01:04 Anion Gap 14 (10-20) 05/14/16 01:04 BUN 14 mg/dL (9-20) 05/14/16 01:04 Creatinine 1.0 MG/DL (0.8-1.5) 05/14/16 01:04 Est GFR ( Amer) > 60 05/14/16 01:04 Est GFR (Non-Af Amer) > 60 05/14/16 01:04 POC Glucose (mg/dL) 87 mg/dL (65-110) 05/13/16 08:04 Random Glucose 92 mg/dL (75-110) 05/14/16 01:04 Hemoglobin A1c 5.9 % (4.2-6.5) 05/14/16 01:04 Calcium 8.2 mg/dl (8.6-10.4) L 05/14/16 01:04 Phosphorus 3.9 mg/dL (2.5-4.5) 05/14/16 01:04 Magnesium 1.8 mg/dL (1.6-2.3) 05/14/16 01:04 Total Bilirubin 0.6 mg/dL (0.2-1.3) 05/14/16 01:04 AST 35 U/L (17-59) 05/14/16 01:04 ALT 65 U/L (21-72) 05/14/16 01:04 Alkaline Phosphatase 58 U/L (38-126) 05/14/16 01:04 Total Creatine Kinase 115 U/L (55-170) 05/14/16 04:12 CK-MB (Mass) 0.38 ng/mL (0.0-3.38) 05/14/16 04:12 Troponin I < 0.0120 ng/mL (0.00-0.120) 05/13/16 09:27 Troponin I, Quant < 0.0120 ng/mL (0.00-0.120) 05/14/16 04:12 C-React Prot High Sens 0.68 mg/L (1.00-3.00) L 05/14/16 01:04 Total Protein 6.5 g/dL (6.3-8.3) 05/14/16 01:04 Albumin 3.4 g/dL (3.5-5.0) L D 05/14/16 01:04 Globulin 3.1 gm/dL (2.2-3.9) 05/14/16 01:04 Albumin/Globulin Ratio 1.1 (1.0-2.1) 05/14/16 01:04 Triglycerides 279 mg/dL (0-149) H 05/14/16 01:04 Cholesterol 182 mg/dL (0-199) 05/14/16 01:04 LDL Cholesterol Direct 110 mg/dL (0-129) 05/14/16 01:04 HDL Cholesterol 17 mg/dL (30-70) L 05/14/16 01:04 Free T4 0.82 ng/dL (0.78-2.19) 05/14/16 04:12 TSH 3rd Generation 5.47 mIU/L (0.46-4.68) H 05/14/16 01:04 Urine Color Colorless (YELLOW) 05/13/16 09:27 Urine Clarity Clear (Clear) 05/13/16 09:27 Urine pH 7.0 (5.0-8.0) 05/13/16 09:27 Ur Specific [place] 1.004 (1.003-1.030) 05/13/16 09:27 Urine Protein Negative mg/dL (NEGATIVE) 05/13/16 09:27 Urine Glucose (UA) Normal mg/dL (Normal) 05/13/16 09:27 Urine Ketones Negative mg/dL (NEGATIVE) 05/13/16 09:27 Urine Blood 1+ (NEGATIVE) H 05/13/16 09:27 Urine Nitrate Negative (NEGATIVE) 05/13/16 09:27 Urine Bilirubin Negative (NEGATIVE) 05/13/16 09:27 Urine Urobilinogen Normal mg/dL (0.2-1.0) 05/13/16 09:27 Ur Leukocyte Esterase Neg [place]/uL (Negative) 05/13/16 09:27 Urine WBC (Auto) < 1 /hpf (0-5) 05/13/16 09:27 Urine RBC (Auto) < 1 /hpf (0-3) 05/13/16 09:27 Urine Opiates Screen Negative (NEGATIVE) 05/13/16 09:27 Urine Methadone Screen Negative (NEGATIVE) 05/13/16 09:27 Ur Barbiturates Screen Negative (NEGATIVE) 05/13/16 09:27 Ur Phencyclidine Scrn Negative (NEGATIVE) 05/13/16 09:27 Ur Amphetamines Screen Negative (NEGATIVE) 05/13/16 09:27 U Benzodiazepines Scrn Negative (NEGATIVE) 05/13/16 09:27 U Oth Cocaine Metabols Negative (NEGATIVE) 05/13/16 09:27 U Cannabinoids Screen Negative (NEGATIVE) 05/13/16 09:27 Attending/Attestation - Attestation I have personally seen and examined this patient.: Yes I have fully participated in the care of the patient.: Yes I have reviewed all pertinent clinical information, including history, physical exam and plan: Yes Notes (Text): This is late computer entry for 05/14/16. patient seen, examined and case discussed with day-time resident. Review of imaging shows no acute pathology. Per neurology, possible likely due to BPPV or vestibular neuronitis. Patient is medically stable for discharge. Discussed discharge order and discharge instructions with day-time resident and patient at bedside. Patient recommended to follow-up outpatient with marcelo tomorrow,05/15/16Tuesday for 9AM. Patient recommended outpatient with neurology. Discharge instructions included: 1. Please make an appointment and follow up with your Primary Doctor in the [facility]. You can call [phone] for an appointment. 2. Please follow up with your Eye Doctor, Dr. Franco. The office is located at [address] and your appointment is scheduled for 9 AM this Tuesday [phone]. 3. Please make an appointment and follow up with you Neurologist, Dr. Duarte. Your PMD in the clinic and provide you with a referral. He'd like to see you regarding likely vertigo due to underlying benign positional paroxysmal etiology. 4. You have Pre-Diabetes with an Hgb A1C of 5.9. Please follow up with your PMD in 1 year to be re-evaluated. 5. You have subclinical Hypothyroidism with a TSH of 5.47. Please follow up with your PMD in 3-4 months. Patient discharged on Artificial tears and PRN Antivert. This is a summary of patient's hospitalization. Please see EMR for further details. Assessment/Plan 1) Diplopia Vertical, with blurry vision on admission Patient hasn't seen an eye doctor or had an eye screening exam before Heat CT (05/13/16) - negative, no intracranial bleed or actue pathology ordered and completed MRI brain w and w/o contrast (05/13/16) - normal Consult: Dr Duarte (neurology) on board-->help appreciated Consult: Dr. Franco (ophthalmology) on board-->help appreciated; recommended pt can follow up in office [address] at 9 AM this Tuesday 2) Dizziness likely vertigo Consult: Dr Duarte (neurology) on board-->help appreciated Heat CT (05/13/16) - negative, no intracranial bleed or actual pathology MRI brain w and w/o contrast (05/13/16) - normal UA - 1+ blood otherwise normal-->repeat UA UDS - negative Meclizine prn 3) Chest pain Resolved at bedside Patient has no prior cardiac risk factors Chest X ray (05/13/16) - no active disease EKG (05/13/16) - NSR bradycardia at 57 bpm AUGUSTINE X3: negative ASA 81 mg PO daily as prophylactic measure 4) Hypertriglyceridemia elevated triglycerides-->advocated for lifestyle modification including diet and exercise Repeat Lipid panel in 3-4 months 5) Subclinical hypothyroidism Repeat thyroid studies as outpatient 6) Impaired glucose tolerance Advised follow-up a1c in one year Advocated for lifestyle modifications including diet and exercise 7) Prophylactic Measures Pepcid 20 mg PO BID for GI ppx DVT - SCDs for DVT ppx PT Eval Heart healthy diet
--- NOTE | 2016-05-15 06:30 | CARD ---
APPROVED REPORT EKG Measurement Heart [id number] <Conclusion> Sinus bradycardia Otherwise normal ECG
--- NOTE | 2016-05-17 15:29 | CARD ---
APPROVED REPORT EKG Measurement Heart [id number] VT [id number] <Conclusion> Sinus bradycardia Otherwise normal ECG
--- NOTE | 2016-06-25 13:51 | CARD ---
APPROVED REPORT EKG Measurement Heart [id number] <Conclusion> Sinus bradycardia Otherwise normal ECG
== END 2016-05-14 18:44 | disposition home or self-care (01) ==
LOC: C.ER 07:47 → C.9E 11:01 → C.6T 17:34
PROVIDERS: ADMIT Hospitalist; ATTEND Hospitalist
DX: R42 Dizziness and giddiness (principal); R07.9 Chest pain, unspecified; F41.9 Anxiety disorder, unspecified; H53.2 Diplopia
CPT/HCPCS: 36415; 70450; 70553; 71010; 80053; 80061; 80324; 80345; 80346; 80349; 80353; 80358; 80361; 81001; 82550; 82553; 82948; 83036; 83735; 83992; 84100; 84439; 84443; 84484; 85025; 85610; 85651; 85730; 86140; 93005; 93306; 96360; 97110; 97116; 97162; 99285; A9579; G0378; G8978; G8979; J7040

== ENCOUNTER 2016-06-08 11:38 | Inpatient (IN) | payer MEDICAID, OTHER ==
[2016-06-08 11:45] VITALS: BMI 25.7
--- NOTE | 2016-06-08 13:31 | C.PDOC ---
History Of Present Illness 46 y/o male presents to the ED with complains of dizziness for the past few weeks. Pt was seen here 2 weeks ago admitted for dizziness with normal CT and MRI of the brain, treated with IV fluids and meclizine; patient felt better and was discharged home with instructions to follow up with door manager Dr Franco and Neurologist Dr Duarte. Pt saw ophthalmology with normal exam. Pt still feeling dizzy despite taking medications. Pt reports unsteady gait and double vision the past couple days when looking downward. Symptoms worsen when trying to close right eye. Symptoms improve when looking upward. Pt denies any numbness /weakness of extremities or face, slurred speech, headache, vomiting or any other complaints. Chief Complaint (Nursing): Dizziness/Lightheaded History Per: Patient History/Exam Limitations: no limitations Onset/Duration Of Symptoms: Days Current Symptoms Are (Timing): Still Present Fall Associated With With Symptoms: No Severity: Moderate Recent travel outside of the [place]: No - Symptoms Of CVA Associated Symptoms: denies: Impaired Speech Recent Head Trauma: No Past Medical History Reviewed: Historical Data, Nursing Documentation, Vital Signs Vital Signs: Last Vital Signs Temp 97.4 F L 06/08/16 16:54 Pulse 50 L 06/08/16 16:54 Resp 16 06/08/16 16:54 BP 107/69 06/08/16 16:54 Pulse Ox 96 06/08/16 17:57 - Medical History PMH: Anxiety Surgical History: Appendectomy - [facility] Procedures RESECTION OF APPENDIX, PERCUTANEOUS ENDOSCOPIC APPROACH (12/31/15) Family History: States: Unknown Family Hx - Social History Hx Tobacco Use: No Hx Alcohol Use: Yes (beers 3x/year) Hx Substance Use: No - Immunization History Hx Tetanus Toxoid Vaccination: No Hx Influenza Vaccination: Yes (2015) Hx Pneumococcal Vaccination: No Review Of Systems Except As Marked, All Systems Reviewed And Found Negative. Constitutional: Negative for: Fever Eyes: Positive for: Vision Change Gastrointestinal: Negative for: Vomiting Neurological: Positive for: Dizziness. Negative for: Weakness, Numbness, Change in Speech, Headache Physical Exam - Physical Exam Appears: Non-toxic, No Acute Distress Skin: Warm, Dry, No Rash Head: Atraumatic, Normacephalic, Other (face symmetric) Eye(s): bilateral: PERRL, right: Other ( right eye proptosis and medial rectus muscle palsy), left: Normal Inspection, EOMI Nose: Normal Neck: Normal ROM, Supple Chest: Symmetrical Cardiovascular: Rhythm Regular, No Murmur Respiratory: Normal Breath Sounds, No Rales, No Rhonchi, No Wheezing Gastrointestinal/Abdominal: Normal Exam, Soft, No Tenderness Extremity: Normal ROM Extremity: Bilateral: Atraumatic Neurological/Psych: Oriented x3, Normal Speech, Normal Cognition, Normal Motor, Normal Sensation Gait: Unsteady ED Course And Treatment - Laboratory Results Result Diagrams: 06/08/16 13:45 06/08/16 13:45 O2 Sat by Pulse Oximetry: 96 (on room air) Pulse Ox Interpretation: Normal - Other Rad MRI Brain X-Ray: Viewed By Me, Read By Radiologist Interpretation: Accession No. : [id number]. Patient Name / ID : FREDERICK DILL / [id number]. Exam Date : 06/08/2016 15:01:20 ( Approved ). Study Comment : Sex / Age : M / 46Y. Creator : cassy mcgregor Dictator : JANET WHITESIDE MD. Senior International Tax Manager : Ladies' Locker Room Attendant : JANET WHITESIDE MD. Approver2 : Report Date : 06/08/2016 16:51:37. My Comment : . PROCEDURE: MRI BRAIN WITH AND WITHOUT CONTRAST. HISTORY: Dizziness, diplopia. COMPARISON: None. TECHNIQUE: Multiplanar, multisequence MR images of the brain were obtained with and without intravenous contrast enhancement. FINDINGS: HEMORRHAGE: None. DWI: No evidence of an acute or early subacute infarction. BRAIN PARENCHYMA: There are scattered T2/FLAIR hyperintense foci in the subcortical supratentorial white matter. There is no mass, mass effect or abnormal extra- axial fluid collection. There is a partially empty sella. Otherwise, the midline sagittal structures are normal. ENHANCEMENT: No abnormal parenchymal or leptomeningeal enhancement. VENTRICLES: There is mild global parenchymal volume loss and proportionate enlargement of the ventricles and cortical sulci, slightly advanced for the patient's age. CRANIUM: Unremarkable. ORBITS: Grossly unremarkable. PARANASAL SINUSES/MASTOIDS: There are retention cysts/ polyps in the right maxillary sinus and polypoid mucosal thickening in the left maxillary sinus. The mastoid air cells are predominantly clear. VASCULAR SYSTEM : There are normal signal voids in the larger intracranial arteries. . OTHER FINDINGS: None . IMPRESSION: No acute intracranial abnormality. mild supratentorial white matter changes are strictly nonspecific, the differential consideration includes migraine headache effect, gliosis, Lyme disease, vasculitis, premature mild chronic microangiopathic changes and demyelinating disease including multiple sclerosis. Mild age advanced global parenchymal volume loss. MRI Orbit Face Neck X-Ray: Viewed By Me, Read By Radiologist Interpretation: Accession No. : [id number]. Patient Name / ID : FREDERICK DILL / [id number]. Exam Date : 06/08/2016 15:01:20 ( Approved ). Study Comment : Sex / Age : M / 46Y. Creator : JANET WHITESIDE MD. Dictator : JANET WHITESIDE MD. Senior International Tax Manager : Ladies' Locker Room Attendant : JANET WHITESIDE MD. Approver2 : Report Date : 06/08/2016 17:27:55. My Comment : . PROCEDURE: MRI OF THE BRAIN AND ORBITS WITH AND WITHOUT CONTRAST. HISTORY: Diplopia, right proptosis. COMPARISON: None. TECHNIQUE: Multiplanar, multisequence MR images of the brain and orbits were obtained with and without contrast enhancement. 15 mL Omniscan injected intravenously. FINDINGS: ORBITS: There is right orbital proptosis. There is normal appearance of the left orbit. The globes are normal contour and demonstrate normal signal intensity. There is no orbital mass or abnormal signal along the course of the optic nerves, chiasm and optic tracts. The intraconal and extraconal fat is within normal limits. The extraocular muscles are normal in size and signal intensity. The lacrimal glands appear normal. The orbital apices demonstrate gross abnormality. Bilateral cavernous sinuses are symmetric and there is normal enhancement without evidence of abnormal soft tissue. There are normal signal voids in the cavernous carotid arteries. There is no evidence of abnormal periorbital or intraorbital soft tissue to suggest orbital cellulitis. SINUSES: There is a retention cyst/ polyp in the right maxillary sinus and mild polypoid mucosal thickening in the left maxillary sinus. The remaining included paranasal sinuses are predominantly clear. The nasal septum is deviated to the right with a mid septal bony spur. OTHER FINDINGS: None. IMPRESSION: Mild right orbital proptosis. No evidence of orbital mass, cavernous sinus thrombosis, orbital varix, orbital cellulitis or thyroid ophthalmopathy. Retention cysts/ polyps in the right maxillary sinus. Progress Note: Neurologist Dr Duarte evaluating patient at bedside. Requests brain MRI w/wo contrast, MRI cervical spine, labs, ESR and CRP, valium PO. Patient accepted to telemetry observation under the care of Dr. Marte. Disposition - Disposition Disposition: HOSPITALIZED Disposition Time: 14:20 Condition: FAIR - Clinical Impression Clinical Impression: Diplopia, Dizziness, Unsteady gait - PA / KILN STACKER / Resident Statement MD/DO has reviewed & agrees with the documentation as recorded. - Scribe Statement The provider has reviewed the documentation as recorded by the Neha Strauss All medical record entries made by the Neha were at my direction and personally dictated by me. I have reviewed the chart and agree that the record accurately reflects my personal performance of the history, physical exam, medical decision making, and the department course for this patient. I have also personally directed, reviewed, and agree with the discharge instructions and disposition. Decision To Admit - Pt Status Changed To: Hospital Disposition Of: Observation - . Bed Request Type: Telemetry Admitting Physician: Asiya Marte Patient Diagnosis: Diplopia, Dizziness, Unsteady gait
--- NOTE | 2016-06-08 13:45 | CP.PCM.CON ---
History of Present Illness - History of Present Illness History of Present Illness: Mr. José Escoto is a 46-year-old man who was previously seen by me for vertigo that resolved after meclizine and was thought to be due to benign positional vertigo. This was about 2-3 weeks ago. Today, the patient presents with blurry /double vision and difficulty with ambulation along with complaints of headache and pressure. He has not had any recent illnesses, infections, nausea, chest pain, shortness of breath, abdominal pain, change in appetite, weakness, sensory changes or any other associated symptoms. Review of Systems - Review of Systems All systems: reviewed and no additional remarkable complaints except Past Patient History - Infectious Disease Hx of Infectious Diseases: None - Past Medical History & Family History Past Medical History?: No - Past Social History Smoking Status: Never Smoked - CARDIAC Hx Cardiac Disorders: No - PULMONARY Hx Respiratory Disorders: No - NEUROLOGICAL Hx Neurological Disorder: No - HEENT Hx HEENT Problems: No - RENAL Hx Chronic Kidney Disease: No - ENDOCRINE/METABOLIC Hx Endocrine Disorders: No - HEMATOLOGICAL/ONCOLOGICAL Hx Blood Disorders: No - INTEGUMENTARY Hx Dermatological Problems: No - MUSCULOSKELETAL/RHEUMATOLOGICAL Hx Musculoskeletal Disorders: No - GASTROINTESTINAL Hx Gastrointestinal Disorders: No - GENITOURINARY/GYNECOLOGICAL Hx Genitourinary Disorders: No - PSYCHIATRIC Hx Anxiety: Yes Hx Substance Use: No - SURGICAL HISTORY Hx Appendectomy: Yes - ANESTHESIA Hx Anesthesia: Yes Hx Anesthesia Reactions: No Hx Malignant Hyperthermia: No Meds Allergies/Adverse Reactions: Allergies Allergy/AdvReac Type Severity Reaction Status Date / Time No Known Allergies Allergy Verified 06/08/16 11:40 Physical Exam - Constitutional Appears: Well - Head Exam Head Exam: ATRAUMATIC, NORMAL INSPECTION, NORMOCEPHALIC - Eye Exam Eye Exam: Conjunctival injection, Periorbital swelling, Periorbital tenderness Pupil Exam: NORMAL ACCOMODATION, PERRL Additional comments: Right eye is injected, proptotic and has a medial rectus palsy with possible partial 3rd nerve palsy. Visual acuity is normal in both eyes individually but not when eyes are uncovered. - ENT Exam ENT Exam: Mucous Membranes Moist, Normal Exam - Neck Exam Neck exam: Positive for: Normal Inspection - Respiratory Exam Respiratory Exam: Clear to Auscultation Bilateral, NORMAL BREATHING PATTERN - Cardiovascular Exam Cardiovascular Exam: REGULAR RHYTHM - GI/Abdominal Exam GI & Abdominal Exam: Normal Bowel Sounds, Soft. absent: Tenderness - Extremities Exam Extremities exam: Positive for: normal inspection - Back Exam Back exam: NORMAL INSPECTION - Neurological Exam Neurological exam: Alert, Normal Gait, Oriented x3, Reflexes Normal Additional comments: CN 3 on the right is abnormal with partial palsy. Other cardiac monitor technician (2-12) are normal bilaterally. - Expanded Neurological Exam Expanded Patient oriented to: person, place, time Cranial nerves: Facial Sensation: Normal, Gag Reflex: Normal, Tongue Deviation: Normal Cerebellar Function: Finger to Nose: Normal, Heel to Head: Normal, Romberg: Normal Upper motor neuron: Babinski Sign: Normal, Larry Neglect: Normal, Pronator Drift : Normal, Sensory Extinction: Normal Sensory exam: Lower Extremity 2 Point Discrimination: Normal, Lower Extremity Light Touch: Normal, Lower Extremity Pin Prick: Normal, Lower Extremity Temperature: Normal, Upper Extremity 2 Point Discrimination: Normal, Upper Extremity Light Touch: Normal, Upper Extremity Pin Prick: Normal, Upper Extremity Temperature: Normal Neuro motor strength exam: Left Upper Extremity: 5, Right Upper Extremity: 5, Left Lower Extremity: 5, Right Lower Extremity: 5 DTR: Achilles Tendon Left: 2+, Achilles Tendon Right: 2+, Bicep Left: 2+, Bicep Right: 2+, Brachioradialis Left: 2+, Brachioradialis Right: 2+, Patellar Left: 2 +, Patellar Right: 2+, Tricep Left: 2+, Tricep Right: 2+ Results - Vital Signs Recent Vital Signs: Last Vital Signs Temp 97.7 F 06/08/16 11:46 Pulse 64 06/08/16 11:46 Resp 18 06/08/16 11:46 BP 131/88 06/08/16 11:46 Pulse Ox 96 06/08/16 13:36 Assessment & Plan (1) Diplopia Assessment and Plan: This could be secondary to involvement of the right orbit, cavernous sinus or the medial rectus muscle. An MRI of the brain with and without contrast, focusing on the cavernous sinus and the orbital region is recommended. Serum inflammatory markers (CRP/ESR), cbc, cmp and TSH/T3/T4 are recommended. Thank you very much for this consultation, I will continue to follow the patient along with the primary team. Status: Acute Priority: High
[2016-06-08 13:49] LABS: BASO # 0.1 K/uL (0.0-0.2); BASO % 0.8 % (0.0-2.0); EOS # 0.3 K/uL (0.0-0.7); EOS % 3.3 % (0.0-4.0); HEMATOCRIT 45.6 % (35.0-51.0); LYMPH # 3.7 K/uL (1.0-4.3); LYMPH % 43.8 % (20.0-40.0); MEAN CELL VOLUME 86.8 fL (80.0-94.0); MEAN CORPUSCULAR HEMOGLOBIN 29.8 pg (27.0-31.0); MEAN CORPUSCULAR HGB CONC 34.3 g/dL (33.0-37.0); MEAN PLATELET VOLUME 7.2 fL (7.2-11.7); MONO # 0.6 K/uL (0.0-0.8); MONO % 6.5 % (0.0-10.0); NRBC % 0.1 % (0.0-2.0); RED CELL DISTRIBUTION WIDTH 13.5 % (11.5-14.5); WHITE BLOOD COUNT 8.5 K/uL (4.8-10.8)
[2016-06-08 14:07] LABS: CHLORIDE 101 mmol/L (98-107)
[2016-06-08 14:08] LABS: SODIUM 138 mmol/L (132-148)
[2016-06-08 14:10] LABS: ALB/GLOB RATIO 1.4 (1.0-2.1); AST/SGOT 35 U/L (17-59); BILIRUBIN,TOTAL 0.5 mg/dL (0.2-1.3); BLOOD UREA NITROGEN 26 mg/dL (9-20); CARBON DIOXIDE 26 mmol/L (22-30); GFR AFRICAN-AMERICAN > 60; TOTAL PROTEIN 7.5 g/dL (6.3-8.3)
[2016-06-08 14:11] LABS: ALKALINE PHOSPHATASE 61 U/L (38-126); ALT/SGPT 35 U/L (21-72); CALCIUM 8.7 mg/dl (8.6-10.4); GLUCOSE,RANDOM 89 mg/dL (75-110)
--- NOTE | 2016-06-08 14:40 | CP.PCM.HP ---
<Juan R Cooley - Last Filed: 06/08/16 22:27> History of Present Illness - History of Present Illness History of Present Illness: CC: double vision with dizziness HPI: 46 year old male with PMHx significant for appendicitis presents with complaints of double vision as well as dizziness for 3 week duration. Patient states that he was hear last several weeks prior but denies much improvement. Patient was admitted 05/13 and had a workup which included ophthalmology as well as neurology. Patient states that he followed up with Ophthalmology with no significant findings. Patient admits to seeing a duplicate image of things in front of him ( one on top of the other). His dizziness is worsened by looking down and improved by looking up. At this time, he denies trauma, recent falls, headaches, chest pain, paresthesias, palpitations, muscle aches, eye discharge, nausea or vomiting at this time. PMHX - appendicitis Surg - laparoscopic appendectomy 12/31/15 Meds - denies Allergies - seasonal Fam Hx - Mother had diabetes Social - denies drug, alcohol, or tobacco use. Patient works at a [employer] station PMD - Has been noncompliant in the past; established care at [facility] Present on Admission - Present on Admission Any Indicators Present on Admission: No Review of Systems - EENT Eyes: Blurred Vision, Diplopia. absent: Blind Spots, Discharge, Dry Eye, Irritation, Photophobia, Loss of Vision Ears: absent: Ear Discharge, Ear Pain Nose/Mouth/Throat: absent: Nasal Congestion, Nasal Discharge - Cardiovascular Cardiovascular: absent: Chest Pain, Chest Pain at Rest - Respiratory Respiratory: absent: Dyspnea on Exertion, Chest Congestion - Gastrointestinal Gastrointestinal: absent: Nausea, Vomiting - Musculoskeletal Musculoskeletal: absent: Abnormal Gait, Arthralgias, Back Pain, Limited Range of Motion - Integumentary Integumentary: absent: Change in Hair, Dry Skin - Neurological Neurological: absent: Abnormal Hearing, Abnormal Movements - Psychiatric Psychiatric: absent: Anhedonia, Anxiety, Change in Appetite, Depression, Irritability - Endocrine Endocrine: absent: Fatigue, Palpitations - Hematologic/Lymphatic Hematologic: absent: Easy Bleeding, Easy Bruising Past Patient History - Infectious Disease Hx of Infectious Diseases: None - Past Medical History & Family History Past Medical History?: No - Past Social History Smoking Status: Never Smoked - CARDIAC Hx Cardiac Disorders: No - PULMONARY Hx Respiratory Disorders: No - NEUROLOGICAL Hx Neurological Disorder: No - HEENT Hx HEENT Problems: No - RENAL Hx Chronic Kidney Disease: No - ENDOCRINE/METABOLIC Hx Endocrine Disorders: No - HEMATOLOGICAL/ONCOLOGICAL Hx Blood Disorders: No - INTEGUMENTARY Hx Dermatological Problems: No - MUSCULOSKELETAL/RHEUMATOLOGICAL Hx Musculoskeletal Disorders: No - GASTROINTESTINAL Hx Gastrointestinal Disorders: No - GENITOURINARY/GYNECOLOGICAL Hx Genitourinary Disorders: No - PSYCHIATRIC Hx Anxiety: Yes Hx Substance Use: No - SURGICAL HISTORY Hx Appendectomy: Yes - ANESTHESIA Hx Anesthesia: Yes Hx Anesthesia Reactions: No Hx Malignant Hyperthermia: No Meds Allergies/Adverse Reactions: Allergies Allergy/AdvReac Type Severity Reaction Status Date / Time No Known Allergies Allergy Verified 06/08/16 11:40 Physical Exam - Constitutional Appears: Non-toxic, No Acute Distress - Head Exam Head Exam: ATRAUMATIC, NORMAL INSPECTION, NORMOCEPHALIC - Eye Exam Eye Exam: EOMI, Normal appearance Pupil Exam: absent: Miosis, Mydriatic, NORMAL ACCOMODATION Additional comments: unclear decreased left sided lateral gaze of left eye; bilateral conjunctival injection - ENT Exam ENT Exam: Mucous Membranes Moist - Neck Exam Neck exam: Positive for: Full Rom - Respiratory Exam Respiratory Exam: NORMAL BREATHING PATTERN - Cardiovascular Exam Cardiovascular Exam: REGULAR RHYTHM, +S1, +S2 - GI/Abdominal Exam GI & Abdominal Exam: Normal Bowel Sounds, Soft - Extremities Exam Extremities exam: Positive for: full ROM, normal inspection - Back Exam Back exam: FULL ROM - Neurological Exam Neurological exam: Alert, CN II-XII Intact, Oriented x3 - Psychiatric Exam Psychiatric exam: Normal Affect, Normal Mood Results - Vital Signs Recent Vital Signs: Last Vital Signs Temp 97.7 F 06/08/16 11:46 Pulse 64 06/08/16 11:46 Resp 18 06/08/16 11:46 BP 131/88 06/08/16 11:46 Pulse Ox 96 06/08/16 14:25 - Labs Result Diagrams: 06/08/16 13:45 06/08/16 13:45 Assessment & Plan - Assessment and Plan (Free Text) Assessment: 1) Diplopia Vertical diplopia, with blurry vision Head CT (05/13/16) - negative, no intracranial bleed or actue pathology Repeat Head CT on this admission negative for intracranial bleed ordered and completed MRI brain w and w/o contrast (05/13/16) - normal MRI of face and orbits- Refer to full report Consult: Dr Duarte (neurology) on board-->F/U recommendations F/U Ophthalmology recommendations from prior encounter Artificial tears Follow up thyroid studies 2) Dizziness likely vertigo Consult: Dr Duarte (neurology) on board-->help appreciated Head CT (05/13/16) - negative, no intracranial bleed or actual pathology Repeat Head CT on this admission negative for intracranial bleed MRI brain w and w/o contrast (05/13/16) - normal MRI of face and orbits- Refer to full report MRI- No acute intrcranial abnormality- Refer to complete report F/U C-spine MRI tmrw 3) Orbital Proptosis Noted on MRI of face and orbits F/U ENT reccs 4) Prophylactic Measures Pepcid 20 mg PO BID for GI ppx DVT - SCDs for DVT ppx PT/OT Eval considerations; Activity as tolerated Regular diet <Asiya Marte V - Last Filed: 06/09/16 16:39> Results - Vital Signs Recent Vital Signs: Last Vital Signs Temp 98 F 06/09/16 15:28 Pulse 65 06/09/16 15:28 Resp 18 06/09/16 15:28 BP 113/68 06/09/16 15:28 Pulse Ox 94 L 06/09/16 15:28 - Labs Result Diagrams: 06/09/16 07:57 06/09/16 07:57 Labs: Laboratory Results - last 24 hr 06/08/16 06/09/16 06/09/16 19:48 07:57 07:57 WBC 8.2 RBC 5.61 Hgb 16.5 Hct 48.7 MCV 86.9 MCH 29.5 MCHC 33.9 RDW 13.4 Plt Count 287 MPV 7.6 Neut % (Auto) 60.0 Lymph % (Auto) 32.3 [place] % (Auto) 4.4 Eos % (Auto) 2.5 Baso % (Auto) 0.8 Neut # 4.9 Lymph # 2.6 [place] # 0.4 Eos # 0.2 Baso # 0.1 Sodium 139 Potassium 4.1 Chloride 101 Carbon Dioxide 24 Anion Gap 19 BUN 22 H Creatinine 0.9 Est GFR ( Amer) > 60 Est GFR (Non-Af Amer) > 60 Random Glucose 84 Calcium 9.0 Phosphorus 3.7 Magnesium 2.0 Total Bilirubin 0.9 AST 33 ALT 35 Alkaline Phosphatase 66 Total Protein 8.0 Albumin 4.6 Globulin 3.4 Albumin/Globulin Ratio 1.3 Free T4 Total T3 1.65 TSH 3rd Generation 3.68 06/09/16 07:57 WBC RBC Hgb Hct MCV MCH MCHC RDW Plt Count MPV Neut % (Auto) Lymph % (Auto) [place] % (Auto) Eos % (Auto) Baso % (Auto) Neut # Lymph # [place] # Eos # Baso # Sodium Potassium Chloride Carbon Dioxide Anion Gap BUN Creatinine Est GFR ( Amer) Est GFR (Non-Af Amer) Random Glucose Calcium Phosphorus Magnesium Total Bilirubin AST ALT Alkaline Phosphatase Total Protein Albumin Globulin Albumin/Globulin Ratio Free T4 0.89 Total T3 TSH 3rd Generation Attending/Attestation - Attestation I have personally seen and examined this patient.: Yes I have fully participated in the care of the patient.: Yes I have reviewed all pertinent clinical information: Yes Notes (Text): This is late computer entry for 06/08/16. Patient seen, examined in [place] [id number] ED on 06/08/16. Patient known to me from last admission. Patient reporting double vision, imaging appearing one on top of another. Patient reports he did visit the opthamologist following his last hospitalization and reports he was told he was fine. Neurology (Dr. Duarte) consulted-->ordered for MRI orbits/facial and MRI brain. Patient has mild right side proptosis noted, but no history of thyroid disease. Assessment/Plan 1) Diplopia * Vertical diplopia, with blurry vision * Head CT (05/13/16) - negative, no intracranial bleed or acute pathology * Brain MRI (06/08/16): no acute intracranial abnormality, Mild supratenotial white matter changes are strictly nonspecific, mild age advanced global parenchymal volume loss * MRI Facial/Orbits (06/08/16): mild right orbital proptosis. No evidence of orbital mass, cavernous sinus thrombosis, orbital variz, orbital cellulitis or thryoid ophthalmology * Consult: Dr Duarte (neurology) on board-->F/U recommendations * Will follow-up with Dr. Franco (ophthalmology) given patient recently saw pathology since last hospitalization in regards to vision * Ordered for Artificial tears * Repeat thyroid studies given patient had elevated TSH last admission 2) Dizziness * likely vertigo * Consult: Dr Duarte (neurology) on board-->help appreciated * Head CT (05/13/16) - negative, no intracranial bleed or acute pathology * Brain MRI (06/08/16): no acute intracranial abnormality, Mild supratenotial white matter changes are strictly nonspecific, mild age advanced global parenchymal volume loss * MRI Facial/Orbits (06/08/16): mild right orbital proptosis. No evidence of orbital mass, cavernous sinus thrombosis, orbital variz, orbital cellulitis or thryoid ophthalmology * Consult: Dr Duarte (neurology) on board-->F/U recommendations * Will follow-up with Dr. Franco (ophthalmology) given patient recently saw pathology since last hospitalization in regards to vision * Ordered for Artificial tears * Repeat thyroid studies given patient had elevated TSH last admission * Ordered for MRI cervical spine tomorrow 3) Orbital Proptosis * Noted on MRI of face and orbits * Consult Dr Bojorquez (ENT) * Patient recently has seen ophthalmology will follow-up regarding findings 4) Elevated TSH * repeat thyroid studies 5) Prophylactic Measures * Pepcid 20 mg PO BID for GI ppx * DVT - SCDs for DVT ppx * PT/OT Eval considerations; Activity as tolerated * Regular diet
[2016-06-08] MEDS ORDERED: Gadodiamide 287 MG/ML VIAL (15ML) IV ONE (16:02)
--- NOTE | 2016-06-08 17:13 | MRI ---
PROCEDURE: MRI BRAIN WITH AND WITHOUT CONTRAST HISTORY: Dizziness, diplopia. COMPARISON: None. TECHNIQUE: Multiplanar, multisequence MR images of the brain were obtained with and without intravenous contrast enhancement. FINDINGS: HEMORRHAGE: None DWI: No evidence of an acute or early subacute infarction. BRAIN PARENCHYMA: There are scattered T2/FLAIR hyperintense foci in the subcortical supratentorial white matter. There is no mass, mass effect or abnormal extra-axial fluid collection. There is a partially empty sella. Otherwise, the midline sagittal structures are normal. ENHANCEMENT: No abnormal parenchymal or leptomeningeal enhancement. VENTRICLES: There is mild global parenchymal volume loss and proportionate enlargement of the ventricles and cortical sulci, slightly advanced for the patient's age. CRANIUM: Unremarkable. ORBITS: Grossly unremarkable. PARANASAL SINUSES/MASTOIDS: There are retention cysts/ polyps in the right maxillary sinus and polypoid mucosal thickening in the left maxillary sinus. The mastoid air cells are predominantly clear. VASCULAR SYSTEM: There are normal signal voids in the larger intracranial arteries. . OTHER FINDINGS: None . IMPRESSION: No acute intracranial abnormality. mild supratentorial white matter changes are strictly nonspecific, the differential consideration includes migraine headache effect, gliosis, Lyme disease, vasculitis, premature mild chronic microangiopathic changes and demyelinating disease including multiple sclerosis. Mild age advanced global parenchymal volume loss.
--- NOTE | 2016-06-08 17:29 | MRI ---
PROCEDURE: MRI OF THE BRAIN AND ORBITS WITH AND WITHOUT CONTRAST HISTORY: Diplopia, right proptosis COMPARISON: None TECHNIQUE: Multiplanar, multisequence MR images of the brain and orbits were obtained with and without contrast enhancement. 15 mL Omniscan injected intravenously. FINDINGS: ORBITS: There is right orbital proptosis. There is normal appearance of the left orbit. The globes are normal contour and demonstrate normal signal intensity. There is no orbital mass or abnormal signal along the course of the optic nerves, chiasm and optic tracts. The intraconal and extraconal fat is within normal limits. The extraocular muscles are normal in size and signal intensity. The lacrimal glands appear normal. The orbital apices demonstrate gross abnormality. Bilateral cavernous sinuses are symmetric and there is normal enhancement without evidence of abnormal soft tissue. There are normal signal voids in the cavernous carotid arteries. There is no evidence of abnormal periorbital or intraorbital soft tissue to suggest orbital cellulitis. SINUSES: There is a retention cyst/ polyp in the right maxillary sinus and mild polypoid mucosal thickening in the left maxillary sinus. The remaining included paranasal sinuses are predominantly clear. The nasal septum is deviated to the right with a mid septal bony spur. OTHER FINDINGS: None IMPRESSION: Mild right orbital proptosis. No evidence of orbital mass, cavernous sinus thrombosis, orbital varix, orbital cellulitis or thyroid ophthalmopathy. Retention cysts/polyps in the right maxillary sinus.
[2016-06-08 20:28] LABS: THYROID STIMULATING HORMONE 3.68 mIU/L (0.46-4.68)
--- NOTE | 2016-06-09 07:10 | CP.PCM.PN ---
<Juan R Cooley - Last Filed: 06/09/16 15:32> Subjective - Date & Time of Evaluation Date of Evaluation: 06/09/16 Time of Evaluation: 07:32 - Subjective Subjective: PGY 1 Medicine Note- Dr. Marte's service Pt seen and examined in no acute distress. Patient has bilateral eye pain though improved from yesterday. He still complains of double vision as well. Patient denies chest pain, paresthesias, headaches, palpitations, lightheadedness, nausea, vomiting, diarrhea or constipation at this time. Objective - Vital Signs/Intake and Output Vital Signs (last 24 hours): Temp Pulse Resp BP Pulse Ox 98.3 F 65 20 106/68 95 06/09/16 04:48 06/09/16 04:48 06/09/16 04:48 06/09/16 04:48 06/09/16 04:48 - Medications Medications: Current Medications Artificial Tears (Artificial Tears) 1 ml OU BID [facility] Famotidine (Pepcid) 20 mg PO BID [facility] Pneumococcal Polyvalent Vaccine (Pneumovax 23 Vaccine) 0.5 ml IM .ONCE ONE Stop: 06/09/16 10:01 - Constitutional Appears: Non-toxic, No Acute Distress - Head Exam Head Exam: ATRAUMATIC, NORMAL INSPECTION, NORMOCEPHALIC - Eye Exam Eye Exam: EOMI, Normal appearance, PERRL Pupil Exam: NORMAL ACCOMODATION Additional comments: decreased conjunctival injection. Patient's has decreased right medial gaze. - ENT Exam ENT Exam: Mucous Membranes Moist - Neck Exam Neck Exam: Full ROM - Respiratory Exam Respiratory Exam: NORMAL BREATHING PATTERN. absent: Wheezes - Cardiovascular Exam Cardiovascular Exam: REGULAR RHYTHM, +S1, +S2 - GI/Abdominal Exam GI & Abdominal Exam: Soft, Normal Bowel Sounds - Extremities Exam Extremities Exam: Full ROM, Normal Capillary Refill, Normal Inspection. absent : Pedal Edema, Tenderness - Back Exam Back Exam: Full ROM, NORMAL INSPECTION - Neurological Exam Neurological Exam: Alert, Awake, CN II-XII Intact, Oriented x3 - Psychiatric Exam Psychiatric exam: Normal Affect, Normal Mood - Skin Skin Exam: Dry, Intact, Normal Color, Warm Assessment and Plan - Assessment and Plan (Free Text) Assessment: 1) Diplopia Vertical diplopia, with blurry vision Head CT (05/13/16) - negative, no intracranial bleed or actue pathology Repeat Head CT on this admission negative for intracranial bleed ordered and completed MRI brain w and w/o contrast (05/13/16) - normal MRI of face and orbits- Refer to full report C-Spine MRI - refer to full report Consult: Dr Duarte (neurology) on board-> Recommendations to f/u CTA head to rule out aneurysmal compression. Decadron to reduce orbital swelling. Right eye patch administered to alleviate diplopia discomfort. Spoke with Dr. Franco: Confirmed that patient did in fact follow up in the office on May 16 following [address] admission[address] Dr. Franco denied ocular changes noted on his exam. He did appreciate some vascular changes but stated that this did not necc correlate nor explain patient's presentation of diplopia. Recommendations to follow up with neurology. Patient to follow up with ophthalmology after discharge. Artificial tears Thyroid studies WNL 2) Dizziness likely vertigo Consult: Dr Duarte (neurology) on board-->help appreciated Head CT (05/13/16) - negative, no intracranial bleed or actual pathology Repeat Head CT on this admission negative for intracranial bleed MRI brain w and w/o contrast (05/13/16) - normal MRI of face and orbits- Refer to full report MRI- No acute intracranial abnormality- Refer to complete report F/U C-Refer to full report 3) Orbital Proptosis Noted on MRI of face and orbits No ENT intervention at this time. 4) Prophylactic Measures Pepcid 20 mg PO BID for GI ppx DVT - SCDs for DVT ppx PT/OT Eval considerations; Activity as tolerated Regular diet <Asiya Marte V - Last Filed: 06/09/16 16:50> Objective - Vital Signs/Intake and Output Vital Signs (last 24 hours): Temp Pulse Resp BP Pulse Ox 98 F 65 18 113/68 94 L 06/09/16 15:28 06/09/16 15:28 06/09/16 15:28 06/09/16 15:28 06/09/16 15:28 - Medications Medications: Current Medications Artificial Tears (Artificial Tears) 1 ml OU BID [facility] Last Admin: 06/09/16 09:42 Dose: 2 drop Dexamethasone (Decadron Inj) 10 mg IVP Q12 [facility] Last Admin: 06/09/16 14:33 Dose: 10 mg Famotidine (Pepcid) 20 mg PO BID [facility] Last Admin: 06/09/16 09:42 Dose: 20 mg - Labs Labs: 06/09/16 07:57 06/09/16 07:57 Attending/Attestation - Attestation I have personally seen and examined this patient.: Yes I have fully participated in the care of the patient.: Yes I have reviewed all pertinent clinical information, including history, physical exam and plan: Yes Notes (Text): Patient seen, examined and case discussed with day-time resident. Patient seen and examined at bedside. Patient reports vision is about the same. Discussed with ophthalmology, patient had seen follow-ing discharge last admission, no acute findings noted per telephone conversation with resident. Discussed with ENT, no intervention needed. Patient completed Head/Neck CTA and Cervical Spine MRI today; will need to follow-up with neurology. Patient started on IV Decadron, eye patch per neurology. Assessment/Plan 1) Diplopia * Vertical diplopia, with blurry vision * Head CT (05/13/16) - negative, no intracranial bleed or acute pathology * Brain MRI (06/08/16): no acute intracranial abnormality, Mild supratenotial white matter changes are strictly nonspecific, mild age advanced global parenchymal volume loss * MRI Facial/Orbits (06/08/16): mild right orbital proptosis. No evidence of orbital mass, cavernous sinus thrombosis, orbital variz, orbital cellulitis or thryoid ophthalmology * Consult: Dr Duarte (neurology) on board-->F/U recommendations * Will follow-up with Dr. Franco (ophthalmology) given patient recently saw pathology since last hospitalization in regards to vision * Ordered for Artificial tears * Repeat thyroid studies given patient had elevated TSH last admission * CT Angio of brain: unremarkable, mild narrowing left bifurcation and proximal internal cartoid artery about 30% * MRI cervical: small medium-sized broad based disc herniation contingous with hypertrophic uncovertebral joints. Mild type 1 discogenic sclerosis. * Started on Decardon 10mg IV Q 12hours per neurology 2) Dizziness * likely vertigo * Consult: Dr Duarte (neurology) on board-->help appreciated * Head CT (05/13/16) - negative, no intracranial bleed or acute pathology * Brain MRI (06/08/16): no acute intracranial abnormality, Mild supratenotial white matter changes are strictly nonspecific, mild age advanced global parenchymal volume loss * MRI Facial/Orbits (06/08/16): mild right orbital proptosis. No evidence of orbital mass, cavernous sinus thrombosis, orbital variz, orbital cellulitis or thryoid ophthalmology * Consult: Dr Duarte (neurology) on board-->F/U recommendations * Will follow-up with Dr. Franco (ophthalmology) given patient recently saw pathology since last hospitalization in regards to vision * Ordered for Artificial tears * Repeat thyroid studies given patient had elevated TSH last admission * CT Angio of brain: unremarkable, mild narrowing left bifurcation and proximal internal cartoid artery about 30% * MRI cervical: small medium-sized broad based disc herniation contingous with hypertrophic uncovertebral joints. Mild type 1 discogenic sclerosis 3) Orbital Proptosis * Noted on MRI of face and orbits * Consult Dr Bojorquez (ENT) * Patient recently has seen ophthalmology will follow-up regarding findings 4) Elevated TSH * repeat thyroid studies within normal 5) Impaired glucose tolerance * a1c: 5.9 as of 05/14/16 * repeat in one year a1c outpatient 6) Hypertriglyceridemia * noted on 05/14/16; elevated TGs * will need repeat FLP in 3-4 months 7) Prophylactic Measures * Pepcid 20 mg PO BID for GI ppx * DVT - SCDs for DVT ppx * PT/OT Eval considerations; Activity as tolerated * Regular diet
[2016-06-09 08:14] LABS: BASO # 0.1 K/uL (0.0-0.2); BASO % 0.8 % (0.0-2.0); EOS # 0.2 K/uL (0.0-0.7); EOS % 2.5 % (0.0-4.0); HEMATOCRIT 48.7 % (35.0-51.0); LYMPH # 2.6 K/uL (1.0-4.3); LYMPH % 32.3 % (20.0-40.0); MEAN CELL VOLUME 86.9 fL (80.0-94.0); MEAN CORPUSCULAR HEMOGLOBIN 29.5 pg (27.0-31.0); MEAN CORPUSCULAR HGB CONC 33.9 g/dL (33.0-37.0); MEAN PLATELET VOLUME 7.6 fL (7.2-11.7); MONO # 0.4 K/uL (0.0-0.8); MONO % 4.4 % (0.0-10.0); NRBC % 0.2 % (0.0-2.0); RED CELL DISTRIBUTION WIDTH 13.4 % (11.5-14.5); WHITE BLOOD COUNT 8.2 K/uL (4.8-10.8)
[2016-06-09 08:23] LABS: CHLORIDE 101 mmol/L (98-107)
[2016-06-09 08:24] LABS: POTASSIUM 4.1 mmol/L (3.6-5.2); SODIUM 139 mmol/L (132-148)
[2016-06-09 08:26] LABS: BILIRUBIN,TOTAL 0.9 mg/dL (0.2-1.3); GFR AFRICAN-AMERICAN > 60
[2016-06-09 08:27] LABS: ALB/GLOB RATIO 1.3 (1.0-2.1); ALKALINE PHOSPHATASE 66 U/L (38-126); ALT/SGPT 35 U/L (21-72); AST/SGOT 33 U/L (17-59); BLOOD UREA NITROGEN 22 mg/dL (9-20); CARBON DIOXIDE 24 mmol/L (22-30); GLUCOSE,RANDOM 84 mg/dL (75-110); PHOSPHOROUS 3.7 mg/dL (2.5-4.5)
[2016-06-09] MEDS: Aritificial Tears (15ml) OU SCH ×2 (09:42→18:02)
[2016-06-09] MEDS ORDERED: Pneumococcal 23-Valent Vaccine IM ONE (10:00)
[2016-06-09] MEDS ORDERED: Gadodiamide 287 MG/ML VIAL (15ML) IV ONE (10:03)
--- NOTE | 2016-06-09 11:30 | MRI ---
PROCEDURE: MR CERVICAL SPINE WITH AND WITHOUT CONTRAST the analyses muscular there HISTORY: dizziness, double vision COMPARISON: None available. TECHNIQUE: Multiecho multiplanar sequences were performed through the cervical spine with and without the use of intravenous contrast. 15 cc Omniscan utilized FINDINGS: Normal lordotic curvature. Cervicomedullary l junction unremarkable. Vertebral body heights preserved. No marrow signal abnormality. Normal cervical cord. No paraspinal abnormality. No abnormal enhancement C2-3: No disc herniation, spinal canal stenosis or neural foraminal narrowing. C3-4: No disc herniation, central canal appears adequate. Facet joints slightly hypertrophic left greater than right. Exit foramina are also adequate. . C4-5: No disc herniation,. Central canal appears adequate facets are mildly hypertrophic left greater than right minimal narrowing left exit foramen . C5-C6: Small to medium-sized broad-based disc herniation contiguous with hypertrophic uncovertebral joints. Facets are slightly hypertrophic. With mild canal narrowing and cord compression. Exit foramina are stenotic bilaterally left greater than. Minor type 1 discogenic sclerosis along the C6-C7 endplates C6-C7: Small broad-based disc bulge ridge complex results in some flattening of the ventral surface of thecal sac. No significant canal compromise nor cord compression. Facet joints slightly hypertrophic. The exit foramina appears slightly narrowed on the left adequate on the right C7-T1: No disc herniation, spinal canal stenosis or neural foraminal narrowing. OTHER FINDINGS: None. IMPRESSION: Small medium-sized broad-based disc herniation contiguous with hypertrophic uncovertebral joints. There is mild type 1 discogenic sclerosis along the endplates. Result in mild canal narrowing and cord compression with bilateral foraminal stenosis.
[2016-06-09] MEDS ORDERED: Iodixanol 320 MG/ML 100 ML BOTTLE IV ONE (13:22)
--- NOTE | 2016-06-09 13:23 | CP.PCM.PN ---
Subjective - Date & Time of Evaluation Date of Evaluation: 06/09/16 Time of Evaluation: 12:10 - Subjective Subjective: Mr. Kumar was seen and examined today at bedside. He continued to complain of double vision and discomfort. There were no acute events overnight. He had no other new complaints. Objective - Vital Signs/Intake and Output Vital Signs (last 24 hours): Temp Pulse Resp BP Pulse Ox 98.2 F 69 20 116/75 95 06/09/16 08:29 06/09/16 08:29 06/09/16 08:29 06/09/16 08:29 06/09/16 08:29 - Medications Medications: Current Medications Artificial Tears (Artificial Tears) 1 ml OU BID [facility] Last Admin: 06/09/16 09:42 Dose: 2 drop Dexamethasone (Decadron Inj) 10 mg IVP Q12 [facility] Famotidine (Pepcid) 20 mg PO BID [facility] Last Admin: 06/09/16 09:42 Dose: 20 mg - Labs Labs: 06/09/16 07:57 06/09/16 07:57 - Constitutional Appears: Well - Head Exam Head Exam: ATRAUMATIC, NORMAL INSPECTION, NORMOCEPHALIC - Eye Exam Eye Exam: Conjunctival injection, Periorbital swelling, Periorbital tenderness Pupil Exam: NORMAL ACCOMODATION, PERRL Additional comments: partial right eye 3rd nerve palsy unchanged. - ENT Exam ENT Exam: Mucous Membranes Moist, Normal Exam - Neck Exam Neck Exam: Full ROM, Normal Inspection. absent: Lymphadenopathy - Respiratory Exam Respiratory Exam: Clear to Ausculation Bilateral, NORMAL BREATHING PATTERN - Cardiovascular Exam Cardiovascular Exam: REGULAR RHYTHM, +S1, +S2. absent: Murmur - GI/Abdominal Exam GI & Abdominal Exam: Soft, Normal Bowel Sounds. absent: Tenderness - Neurological Exam Neurological Exam: Alert, Awake, Normal Gait, Oriented x3 Neuro motor strength exam: Left Upper Extremity: 5, Right Upper Extremity: 5, Left Lower Extremity: 5, Right Lower Extremity: 5 Additional comments: Neurologically unchanged compared with yesterday's examination. Assessment and Plan (1) Diplopia Assessment & Plan: Due to partial 3rd nerve palsy on the right. Will obtain a CTA of the head to rule out aneurysmal compression. Will start decadron for the swelling. An eye patch over the right eye will help with the diplopia an discomfort. Status: Acute
--- NOTE | 2016-06-09 14:30 | CT ---
PROCEDURE: CTA of the neck and brain 17. HISTORY: 3rd nerve palsy, concern for aneurysm COMPARISON: Comparison made with CT scan brain 05/13/2026 TECHNIQUE: Contiguous helical/ transaxial sections of the neck and brain performed in standard fashion following intravenous injection of approximately 100 cc of Visipaque 320 contrast material employing CTA protocol. Additional 2 dimensional sagittal and coronal reformats provided. FINDINGS: Origins of the great vessels are widely patent without significant atherosclerotic disease The left common carotid arteries widely patent without evidence of occlusion or significant stenosis. . There appears to be localized narrowing at the level of the bifurcation/ proximal left internal carotid artery estimated at approximately 30%. The distal left internal carotid arteries including petrous, cavernous and supraclinoid segments are also widely patent without evidence of occlusion significant stenosis or large aneurysm/ vascular malformation. . Right-sided carotid circulation is widely patent throughout without occlusion or significant stenosis The vertebral arteries are widely patent as well on left-sided which is slightly larger in caliber more dominant than the right. Basilar artery is patent as are posterior cerebral noted in this arteries without occlusion or narrowing. . The visualized major branches of the [place] are also unremarkable without evidence of large aneurysm nor vascular malformation. Mild mucosal thickening seen in the right maxillary antrum and minimal mucosal thickening left maxillary antrum IMPRESSION: Unremarkable CTA of the brain. Mild narrowing left bifurcation/proximal internal carotid artery estimated approximately 30 %
[2016-06-10 07:22] LABS: LYMPH # 1.3 K/uL (1.0-4.3); LYMPH % 12.8 % (20.0-40.0); MEAN CELL VOLUME 86.5 fL (80.0-94.0); MEAN CORPUSCULAR HEMOGLOBIN 29.1 pg (27.0-31.0); MEAN CORPUSCULAR HGB CONC 33.7 g/dL (33.0-37.0); MEAN PLATELET VOLUME 7.5 fL (7.2-11.7); MONO # 0.1 K/uL (0.0-0.8); MONO % 0.6 % (0.0-10.0); NRBC % 0.2 % (0.0-2.0); RED CELL DISTRIBUTION WIDTH 13.6 % (11.5-14.5); WHITE BLOOD COUNT 10.1 K/uL (4.8-10.8)
[2016-06-10 07:50] LABS: CHLORIDE 103 mmol/L (98-107)
[2016-06-10 07:51] LABS: POTASSIUM 3.9 mmol/L (3.6-5.2); SODIUM 139 mmol/L (132-148)
[2016-06-10 07:53] LABS: CARBON DIOXIDE 21 mmol/L (22-30); GFR AFRICAN-AMERICAN > 60
[2016-06-10 07:54] LABS: ALB/GLOB RATIO 1.3 (1.0-2.1); ALKALINE PHOSPHATASE 70 U/L (38-126); ALT/SGPT 33 U/L (21-72); AST/SGOT 27 U/L (17-59); BILIRUBIN,TOTAL 0.7 mg/dL (0.2-1.3); BLOOD UREA NITROGEN 18 mg/dL (9-20); CALCIUM 9.1 mg/dl (8.6-10.4); GLUCOSE,RANDOM 143 mg/dL (75-110); PHOSPHOROUS 3.7 mg/dL (2.5-4.5); TOTAL PROTEIN 7.9 g/dL (6.3-8.3)
[2016-06-10 07:55] LABS: MAGNESIUM 1.8 mg/dL (1.6-2.3)
[2016-06-10] MEDS: Aritificial Tears (15ml) OU SCH ×2 (09:50→17:49)
--- NOTE | 2016-06-10 14:51 | CP.PCM.PN ---
Subjective - Date & Time of Evaluation Date of Evaluation: 06/10/16 Time of Evaluation: 11:15 - Subjective Subjective: Mr. Kumar was seen and examined today at bedside. He said that the eye patch over the right eye helped with decreasing his diplopia and dizziness. He does not have headache and denied and new symptoms. There were no acute events overnight. We discussed the results of his tests and the benign nature of the imaging that was done so far. Objective - Vital Signs/Intake and Output Vital Signs (last 24 hours): Temp Pulse Resp BP Pulse Ox 98.3 F 101 H 20 146/90 95 06/10/16 07:58 06/10/16 07:58 06/10/16 07:58 06/10/16 07:58 06/10/16 07:58 - Medications Medications: Current Medications Artificial Tears (Artificial Tears) 1 ml OU BID [facility] Last Admin: 06/10/16 09:50 Dose: 1 drop Dexamethasone (Decadron Inj) 10 mg IVP Q12 [facility] Last Admin: 06/10/16 09:51 Dose: 10 mg Famotidine (Pepcid) 20 mg PO BID [facility] Last Admin: 06/10/16 09:50 Dose: 20 mg - Labs Labs: 06/10/16 06:54 06/10/16 06:54 - Constitutional Appears: Well - Head Exam Head Exam: ATRAUMATIC, NORMAL INSPECTION, NORMOCEPHALIC - Eye Exam Eye Exam: Conjunctival injection, Periorbital swelling Pupil Exam: NORMAL ACCOMODATION, PERRL Additional comments: Medial rectus palsy on the right. - ENT Exam ENT Exam: Mucous Membranes Moist, Normal Exam - Cardiovascular Exam Cardiovascular Exam: REGULAR RHYTHM, +S1, +S2. absent: Murmur - Neurological Exam Neurological Exam: Alert, Awake, Normal Gait, Oriented x3 Neuro motor strength exam: Left Upper Extremity: 5, Right Upper Extremity: 5, Left Lower Extremity: 5, Right Lower Extremity: 5 Additional comments: Partial 3rd nerve palsy on the right similar to previous exam. - Psychiatric Exam Psychiatric exam: Normal Affect, Normal Mood Assessment and Plan (1) Diplopia Assessment & Plan: No evidence of infarct or aneurysm. Could be a nerve infarct, inflammatory infiltrate or auto-immune. Will consult ophthalmology for help and consider an LP for CSF analysis if there are no other explanations. Status: Acute
--- NOTE | 2016-06-10 18:43 | CP.PCM.PN ---
<Juan R Cooley - Last Filed: 06/10/16 18:51> Subjective - Date & Time of Evaluation Date of Evaluation: 06/10/16 Time of Evaluation: 07:15 - Subjective Subjective: PGY 1 Medicine Note- Dr. Marte's service Pt seen and examined in no acute distress. Patient currently wearing the eye patch and noted improvement of his vision. He had a slight headache early in the morning which later resolved. Patient otherwise had no acute complaints at this time. Son was present bedside as well. Objective - Vital Signs/Intake and Output Vital Signs (last 24 hours): Temp Pulse Resp BP Pulse Ox 98.2 F 102 H 18 124/83 93 L 06/10/16 15:45 06/10/16 15:45 06/10/16 15:45 06/10/16 15:45 06/10/16 15:45 - Medications Medications: Current Medications Artificial Tears (Artificial Tears) 1 ml OU BID [facility] Last Admin: 06/10/16 17:49 Dose: 1 drop Dexamethasone (Decadron Inj) 10 mg IVP Q12 [facility] Last Admin: 06/10/16 09:51 Dose: 10 mg Famotidine (Pepcid) 20 mg PO BID [facility] Last Admin: 06/10/16 17:49 Dose: 20 mg - Labs Labs: 06/10/16 06:54 06/10/16 06:54 - Constitutional Appears: Non-toxic, No Acute Distress - Head Exam Head Exam: ATRAUMATIC, NORMAL INSPECTION, NORMOCEPHALIC - Eye Exam Eye Exam: EOMI, Normal appearance, PERRL Pupil Exam: NORMAL ACCOMODATION, PERRL Additional comments: decreased conjunctival injection; decreased right medial gaze. - ENT Exam ENT Exam: Mucous Membranes Moist - Neck Exam Neck Exam: Full ROM - Respiratory Exam Respiratory Exam: Clear to Ausculation Bilateral, NORMAL BREATHING PATTERN. absent: Wheezes - Cardiovascular Exam Cardiovascular Exam: REGULAR RHYTHM, +S1, +S2 - GI/Abdominal Exam GI & Abdominal Exam: Soft, Normal Bowel Sounds - Extremities Exam Extremities Exam: Full ROM, Normal Capillary Refill, Normal Inspection. absent : Pedal Edema - Back Exam Back Exam: Full ROM - Neurological Exam Neurological Exam: Alert, Awake, Oriented x3 - Psychiatric Exam Psychiatric exam: Normal Affect, Normal Mood - Skin Skin Exam: Dry, Intact, Normal Color, Warm Assessment and Plan - Assessment and Plan (Free Text) Assessment: Diplopia Vertical diplopia, with blurry vision Head CT (05/13/16) - negative, no intracranial bleed or acute pathology Repeat Head CT on this admission negative for intracranial bleed ordered and completed MRI brain w and w/o contrast (05/13/16) - normal MRI of face and orbits- Refer to full report C-Spine MRI - small medium-sized broad based disc herniation contingous with hypertrophic uncovertebral joints. Mild type 1 discogenic sclerosis.Refer to full report Consult: Dr Duarte (neurology) on board-> CTA head to rule out aneurysmal compression. Decadron to reduce orbital swelling. Right eye patch administered to alleviate diplopia discomfort. Spoke with Dr. Franco (Ophthalmology): Confirmed that patient did in fact follow up in the office on May 16 [address] admission[address] Dr. Franco denied ocular changes noted on his exam. He did appreciate some vascular changes but stated that this did not necc correlate nor explain patient's presentation of diplopia. Recommendations to follow up with neurology. Consult to Dr. Peterson/Dr. Lanza group (Ophthalmology) for further considerations- F/U Artificial tears Thyroid studies WNL Dizziness Improved Consult: Dr Duarte (neurology) on board- F/U recommendations Head CT (05/13/16) - negative, no intracranial bleed or actual pathology Repeat Head CT on this admission negative for intracranial bleed MRI brain w and w/o contrast (05/13/16) - normal MRI of face and orbits- Refer to full report MRI- No acute intracranial abnormality- Refer to complete report CTA- unremarkable, mild narrowing left bifurcation and proximal internal carotid artery about 30%. Refer to full report Orbital Proptosis Noted on MRI of face and orbits No ENT intervention at this time. Consult to Dr. Peterson/Dr. Lanza group (Ophthalmology) for further considerations- F/U Impaired glucose tolerance Noted on prior admission 05/14/16 Hgba1c: 5.9 Repeat in one year outpatient Hypertriglyceridemia Noted on prior admission 05/14/16; elevated Triglycerides Repeat FLP in 3-4 months Prophylactic Measures Pepcid 20 mg PO BID for GI ppx DVT - SCDs for DVT ppx PT/OT Eval considerations; Activity as tolerated Regular diet <Asiya Marte V - Last Filed: 06/10/16 21:17> Objective - Vital Signs/Intake and Output Vital Signs (last 24 hours): Temp Pulse Resp BP Pulse Ox 98.2 F 93 H 18 124/83 93 L 06/10/16 15:45 06/10/16 17:30 06/10/16 15:45 06/10/16 15:45 06/10/16 15:45 - Medications Medications: Current Medications Artificial Tears (Artificial Tears) 1 ml OU BID [facility] Last Admin: 06/10/16 17:49 Dose: 1 drop Dexamethasone (Decadron Inj) 10 mg IVP Q12 [facility] Last Admin: 06/10/16 09:51 Dose: 10 mg Famotidine (Pepcid) 20 mg PO BID [facility] Last Admin: 06/10/16 17:49 Dose: 20 mg - Labs Labs: 06/10/16 06:54 06/10/16 06:54 Attending/Attestation - Attestation I have personally seen and examined this patient.: Yes I have fully participated in the care of the patient.: Yes I have reviewed all pertinent clinical information, including history, physical exam and plan: Yes Notes (Text): Patient seen, examined and case discussed with day-time resident. Patient seen and examined at bedside with son at bedside. Patient reports vision is about the same. He reports he is able to see out of each eye independently but when he uses both of his eyes he sees blurry. Consult opthalmology ([facility]) regarding diplopia for further recommendations. Patient started on IV Decadron, eye patch per neurology. Case discussed with neurology Assessment/Plan 1) Diplopia * Vertical diplopia, with blurry vision * Head CT (05/13/16) - negative, no intracranial bleed or acute pathology * Brain MRI (06/08/16): no acute intracranial abnormality, Mild supratenotial white matter changes are strictly nonspecific, mild age advanced global parenchymal volume loss * MRI Facial/Orbits (06/08/16): mild right orbital proptosis. No evidence of orbital mass, cavernous sinus thrombosis, orbital variz, orbital cellulitis or thryoid ophthalmology * Consult: Dr Duarte (neurology) on board-->F/U recommendations * Will follow-up with Dr. Franco (ophthalmology) given patient recently saw pathology since last hospitalization in regards to vision * Ordered for Artificial tears * Repeat thyroid studies given patient had elevated TSH last admission * CT Angio of brain: unremarkable, mild narrowing left bifurcation and proximal internal cartoid artery about 30% * MRI cervical: small medium-sized broad based disc herniation contingous with hypertrophic uncovertebral joints. Mild type 1 discogenic sclerosis. * Started on Decardon 10mg IV Q 12hours per neurology * Consult [facility] (opthalamology)-->f/u 2) Dizziness * likely vertigo * Consult: Dr Duarte (neurology) on board-->help appreciated * Head CT (05/13/16) - negative, no intracranial bleed or acute pathology * Brain MRI (06/08/16): no acute intracranial abnormality, Mild supratenotial white matter changes are strictly nonspecific, mild age advanced global parenchymal volume loss * MRI Facial/Orbits (06/08/16): mild right orbital proptosis. No evidence of orbital mass, cavernous sinus thrombosis, orbital variz, orbital cellulitis or thryoid ophthalmology * Consult: Dr Duarte (neurology) on board-->F/U recommendations * Will follow-up with Dr. Franco (ophthalmology) given patient recently saw pathology since last hospitalization in regards to vision * Ordered for Artificial tears * Repeat thyroid studies given patient had elevated TSH last admission * CT Angio of brain: unremarkable, mild narrowing left bifurcation and proximal internal cartoid artery about 30% * MRI cervical: small medium-sized broad based disc herniation contingous with hypertrophic uncovertebral joints. Mild type 1 discogenic sclerosis 3) Orbital Proptosis * Noted on MRI of face and orbits * Consult Dr Bojorquez (ENT) * Patient recently has seen ophthalmology will follow-up regarding findings 4) Elevated TSH * repeat thyroid studies within normal 5) Impaired glucose tolerance * a1c: 5.9 as of 05/14/16 * repeat in one year a1c outpatient 6) Hypertriglyceridemia * noted on 05/14/16; elevated TGs * will need repeat FLP in 3-4 months 7) Prophylactic Measures * Pepcid 20 mg PO BID for GI ppx * DVT - SCDs for DVT ppx * PT/OT Eval considerations; Activity as tolerated * Regular diet
[2016-06-11 01:31] VITALS: RESP 20
[2016-06-11 08:46] LABS: BASO % 0.1 % (0.0-2.0); HEMATOCRIT 45.9 % (35.0-51.0); LYMPH # 1.5 K/uL (1.0-4.3); LYMPH % 9.1 % (20.0-40.0); MEAN CELL VOLUME 87.3 fL (80.0-94.0); MEAN CORPUSCULAR HEMOGLOBIN 28.8 pg (27.0-31.0); MONO # 0.2 K/uL (0.0-0.8); MONO % 1.4 % (0.0-10.0); NRBC % 0.1 % (0.0-2.0); PLATELET COUNT 301 K/uL (130-400); RED CELL DISTRIBUTION WIDTH 13.5 % (11.5-14.5)
[2016-06-11 08:49] LABS: WHITE BLOOD COUNT 16.7 K/uL (4.8-10.8)
[2016-06-11 08:57] LABS: CHLORIDE 103 mmol/L (98-107); POTASSIUM 3.8 mmol/L (3.6-5.2); SODIUM 140 mmol/L (132-148)
[2016-06-11 08:59] LABS: BILIRUBIN,TOTAL 0.6 mg/dL (0.2-1.3); CARBON DIOXIDE 20 mmol/L (22-30); GFR AFRICAN-AMERICAN > 60
[2016-06-11 09:00] LABS: ALB/GLOB RATIO 1.3 (1.0-2.1); ALKALINE PHOSPHATASE 68 U/L (38-126); ALT/SGPT 17 U/L (21-72); AST/SGOT 22 U/L (17-59); BLOOD UREA NITROGEN 21 mg/dL (9-20); GLUCOSE,RANDOM 158 mg/dL (75-110); PHOSPHOROUS 3.4 mg/dL (2.5-4.5); TOTAL PROTEIN 7.6 g/dL (6.3-8.3)
[2016-06-11 09:01] LABS: MAGNESIUM 1.9 mg/dL (1.6-2.3)
[2016-06-11 09:51] LABS: NEUTROPHIL 89 % (50-75); TOTAL CELLS COUNTED 100
[2016-06-11] MEDS: Aritificial Tears (15ml) OU SCH ×2 (10:19→18:09)
--- NOTE | 2016-06-11 11:37 | CP.PCM.PN ---
Subjective - Date & Time of Evaluation Date of Evaluation: 06/11/16 Time of Evaluation: 06:15 - Subjective Subjective: PGY 1 Medicine Note- Dr. Marte's service Pt seen and examined in no acute distress. Patient states that vision is improved with right eye covered. Patient does admit to seeing black spots or floaters with left eye from time to time. At the time of evaluation, he was not experiencing difficulty with vision. Patient denies headaches, subjective fevers or chills, nausea, vomiting, diarrhea, chest pain, palpitations, trauma at this time. Objective - Vital Signs/Intake and Output Vital Signs (last 24 hours): Temp Pulse Resp BP Pulse Ox 98.0 F 90 20 148/75 96 06/11/16 08:41 06/11/16 08:41 06/11/16 08:41 06/11/16 08:41 06/11/16 08:41 - Medications Medications: Current Medications Artificial Tears (Artificial Tears) 1 ml OU BID [facility] Last Admin: 06/11/16 10:19 Dose: 1 drop Dexamethasone (Decadron Inj) 10 mg IVP Q12 [facility] Last Admin: 06/10/16 23:05 Dose: 10 mg Famotidine (Pepcid) 20 mg PO BID [facility] Last Admin: 06/11/16 10:20 Dose: 20 mg - Constitutional Appears: Non-toxic, No Acute Distress - Head Exam Head Exam: ATRAUMATIC, NORMAL INSPECTION, NORMOCEPHALIC - Eye Exam Eye Exam: EOMI, PERRL Pupil Exam: NORMAL ACCOMODATION Additional comments: patient not able to adduct right eye; slight proptosis noted. - ENT Exam ENT Exam: Mucous Membranes Moist - Neck Exam Neck Exam: Full ROM - Respiratory Exam Respiratory Exam: NORMAL BREATHING PATTERN. absent: Wheezes - Cardiovascular Exam Cardiovascular Exam: +S1, +S2 - GI/Abdominal Exam GI & Abdominal Exam: Normal Bowel Sounds. absent: Tenderness - Extremities Exam Extremities Exam: Full ROM, Normal Capillary Refill - Back Exam Back Exam: Full ROM - Neurological Exam Neurological Exam: Alert, Awake, Oriented x3 - Psychiatric Exam Psychiatric exam: Normal Affect, Normal Mood - Skin Skin Exam: Dry, Intact, Normal Color, Warm
--- NOTE | 2016-06-11 14:16 | CON ---
DATE: 06/11/2016 HISTORY OF PRESENT ILLNESS: The patient is a 46-year-old male with a past medical history only signi ficant for appendicitis. He presented to the Emergency Room on the with complaints of double vi dion and dizziness and decrease in vision for 3 weeks. He has been admitted previously for similar s ymptoms. He reports that on previous eye exams he was noted to have no ophthalmologic pathology. PAST MEDICAL HISTORY: Appendicitis. PAST SURGICAL HISTORY: Appendectomy. MEDICATIONS: He reports he was not on any medications. ALLERGIES: Only has seasonal allergies. PHYSICAL EXAMINATION: Today, his visual acuity in the right eye is 20/50 near without correction. S loli vision in the left eye. He has no pupillary defect. His motility exam shows that his right eye has decreased motility moving towards his nose which is adduction, so he has decreased adduction in t he right eye. On slit lamp exam, his cornea, anterior chamber and lens are clear. His eye pressure is normal in both eyes. His posterior exam shows normal nerves and retina. On review of his imaging studies so far, there is noted to be mild proptosis of his right orbit on hi s MRI. ASSESSMENT AND PLAN: Diplopia due to decreased adduction of his right eye. Once his workup is compl ete, he can be discharged and followed up with ophthalmology on an outpatient basis. The phone chuyita montelongo to the office is [phone]. He can call next week to make his appointment. Currently, his ocul ar exam except for his motility issue is normal. There was nothing acute. If there are any question s, you can feel free to contact our office [phone]. Ishaan Escamilla MD cc: [id number] TT: 06/11/2016 14:15:42 Confirmation # [id number] Dictation # [id number] bartolo
[2016-06-11 16:41] VITALS: BP 131/80; TEMP 98.4; O2SAT 94
--- NOTE | 2016-06-11 17:46 | CP.PCM.DIS ---
<Asiya Marte V - Last Filed: 06/11/16 18:41> Provider - Provider Date of Admission: 06/11/16 10:18 Attending physician: Asiya Marte, [facility] Course - Lab Results Lab Results: Most Recent Lab Values WBC 16.7 K/uL (4.8-10.8) H D 06/11/16 08: RBC 5.26 Mil/uL (4.40-5.90) 06/11/16 08: Hgb 15.1 g/dL (12.0-18.0) 06/11/16 08: Hct 45.9 % (35.0-51.0) 06/11/16 08: MCV 87.3 fL (80.0-94.0) 06/11/16 08: MCH 28.8 pg (27.0-31.0) 06/11/16 08: MCHC 33.0 g/dL (33.0-37.0) 06/11/16 08: RDW 13.5 % (11.5-14.5) 06/11/16 08: Plt Count 301 K/uL (130-400) 06/11/16 08: MPV 8.0 fL (7.2-11.7) 06/11/16 08: Neut % (Auto) 89.4 % (50.0-75.0) H 06/11/16 08: Lymph % (Auto) 9.1 % (20.0-40.0) L 06/11/16 08: Page % (Auto) 1.4 % (0.0-10.0) 06/11/16 08: Eos % (Auto) 0.0 % (0.0-4.0) 06/11/16 08: Baso % (Auto) 0.1 % (0.0-2.0) 06/11/16 08: Neut # 14.9 K/uL (1.8-7.0) H 06/11/16 08: Lymph # 1.5 K/uL (1.0-4.3) 06/11/16 08: Page # 0.2 K/uL (0.0-0.8) 06/11/16 08: Eos # 0.0 K/uL (0.0-0.7) 06/11/16 08:29 Baso # 0.0 K/uL (0.0-0.2) 06/11/16 08:29 Neutrophils % (Manual) 89 % (50-75) H 06/11/16 08:29 Lymphocytes % (Manual) 8 % (20-40) L 06/11/16 08: Monocytes % (Manual) 3 % (0-10) 06/11/16 08:29 Platelet Estimate Normal (NORMAL) 06/11/16 08:29 RBC Morphology Normal 06/11/16 08:29 ESR 17 mm/hr (0-15) H 06/08/16 13:45 Sodium 140 mmol/L (132-148) 06/11/16 08:29 Potassium 3.8 mmol/L (3.6-5.2) 06/11/16 08:29 Chloride 103 mmol/L (98-107) 06/11/16 08: Carbon Dioxide 20 mmol/L (22-30) L 06/11/16 08:29 Anion Gap 21 (10-20) H 06/11/16 08:29 BUN 21 mg/dL (9-20) H 06/11/16 08:29 Creatinine 0.8 MG/DL (0.8-1.5) 06/11/16 08:29 Est GFR ( Amer) > 60 06/11/16 08:29 Est GFR (Non-Af Amer) > 60 06/11/16 08:29 Random Glucose 158 mg/dL (75-110) H 06/11/16 08: Calcium 9.0 mg/dl (8.6-10.4) 06/11/16 08:29 Phosphorus 3.4 mg/dL (2.5-4.5) 06/11/16 08:29 Magnesium 1.9 mg/dL (1.6-2.3) 06/11/16 08:29 Total Bilirubin 0.6 mg/dL (0.2-1.3) 06/11/16 08:29 AST 22 U/L (17-59) 06/11/16 08:29 ALT 17 U/L (21-72) L D 06/11/16 08:29 Alkaline Phosphatase 68 U/L (38-126) 06/11/16 08:29 C-React Prot High Sens 0.94 mg/L (1.00-3.00) L 06/08/16 13:45 Total Protein 7.6 g/dL (6.3-8.3) 06/11/16 08:29 Albumin 4.3 g/dL (3.5-5.0) 06/11/16 08:29 Globulin 3.3 gm/dL (2.2-3.9) 06/11/16 08:29 Albumin/Globulin Ratio 1.3 (1.0-2.1) 06/11/16 08:29 Free T4 0.89 ng/dL (0.78-2.19) 06/09/16 07:57 Total T3 1.65 nmol/L (1.49-2.60) 06/08/16 19:48 TSH 3rd Generation 3.68 mIU/L (0.46-4.68) 06/08/16 19:48 Discharge Plan - Discharge Medications Prescriptions: Famotidine [Pepcid] 20 mg PO BID #28 tab predniSONE [Prednisone] See Taper PO DAILY #15 tab - Follow Up Plan Condition: FAIR Disposition: HOME/ ROUTINE Instructions: Famotidine (By mouth), Prednisone (By mouth), Diplopia (DC) Additional Instructions: Patient is medically clear for discharge home. Patient may continue to wear eye patch as needed for relief of symptoms. Patient to follow up with [facility] within one week of discharge. Patient provided with prescriptions for prednisone taper and pepcid. He should take as directed on bottle. Patient to follow up with [facility] Dr. Escamilla within one week for follow up care. Patient should call [phone] to make an appointment. If symptoms return, go to emergency room. Instructions have been explained to patient who is aware. Referrals: [facility] [Outside] Ishaan Escamilla [Staff Provider] - Attending/Attestation - Attestation I have personally seen and examined this patient.: Yes I have fully participated in the care of the patient.: Yes I have reviewed all pertinent clinical information, including history, physical exam and plan: Yes Notes (Text): Patient seen, examined, and case discussed with day-time resident. Patient seen, evaluated this morning. Ophthalmology seen and evaluated patient today. Discussed with neurology, patient stable for discharge. Patient to undergo Prednisone taper upon discharge. Patient to follow-up with with ophthalmology, neurology, and establish care at [facility]. Patient provided excuse note for missed airline flight given he was in the hospital. This is a summary of patient's hospitalization. please refer to EMR for further details. Assessment/Plan 1) Diplopia * Vertical diplopia, with blurry vision * Head CT (05/13/16) - negative, no intracranial bleed or acute pathology * Brain MRI (06/08/16): no acute intracranial abnormality, Mild supratenotial white matter changes are strictly nonspecific, mild age advanced global parenchymal volume loss * MRI Facial/Orbits (06/08/16): mild right orbital proptosis. No evidence of orbital mass, cavernous sinus thrombosis, orbital variz, orbital cellulitis or thryoid ophthalmology * Consult: Dr Duarte (neurology) on board * Will follow-up with Dr. Franco (ophthalmology) given patient recently saw pathology since last hospitalization in regards to vision * Ordered for Artificial tears * Repeat thyroid studies given patient had elevated TSH last admission * CT Angio of brain: unremarkable, mild narrowing left bifurcation and proximal internal cartoid artery about 30% * MRI cervical: small medium-sized broad based disc herniation contiguous with hypertrophic uncovertebral joints. Mild type 1 discogenic sclerosis. * Started on Decardon 10mg IV Q 12hours per neurology-->discharged on Prednisone taper (50mg for 2 days, 40mg PO for 2 days, 30mg PO for 2 days, 20mg PO for 2 days, 10mg PO for 2 days per neurology * Consult [facility] (ophthalmology)-->help appreciated-->diplopia due to decreased adduction of right eye, when workup completed, discharged and follow- up with ophthalmology ([phone]) 2) Dizziness * Consult: Dr Duarte (neurology) on board-->help appreciated * Head CT (05/13/16) - negative, no intracranial bleed or acute pathology * Brain MRI (06/08/16): no acute intracranial abnormality, Mild supratenotial white matter changes are strictly nonspecific, mild age advanced global parenchymal volume loss * MRI Facial/Orbits (06/08/16): mild right orbital proptosis. No evidence of orbital mass, cavernous sinus thrombosis, orbital variz, orbital cellulitis or thryoid ophthalmology * Consult: Dr Duarte (neurology) on board * Will follow-up with Dr. Franco (ophthalmology) given patient recently saw pathology since last hospitalization in regards to vision * Ordered for Artificial tears * Repeat thyroid studies given patient had elevated TSH last admission * CT Angio of brain: unremarkable, mild narrowing left bifurcation and proximal internal cartoid artery about 30% * MRI cervical: small medium-sized broad based disc herniation contingous with hypertrophic uncovertebral joints. Mild type 1 discogenic sclerosis 3) Orbital Proptosis * Noted on MRI of face and orbits * Consult Dr Bojorquez (ENT): no intervention * Patient recently has seen ophthalmology will follow-up regarding findings 4) Elevated TSH * repeat thyroid studies within normal 5) Impaired glucose tolerance * a1c: 5.9 as of 05/14/16 * repeat in one year a1c outpatient 6) Hypertriglyceridemia * noted on 05/14/16; elevated TGs * will need repeat FLP in 3-4 months 7) Prophylactic Measures * Pepcid 20 mg PO BID for GI ppx * DVT - SCDs for DVT ppx * PT/OT Eval considerations; Activity as tolerated * Regular diet <Juan R Cooley - Last Filed: 06/11/16 21:34> Provider - Provider Date of Admission: 06/11/16 10:18 Attending physician: Asiya Marte DO Consults: Dr. Duarte (Neurology) Dr. Escamilla (Ophthalmology) Time Spent in preparation of Discharge (in minutes): 36 Diagnosis - Discharge Diagnosis (1) Diplopia Status: Acute Priority: High (2) Dizziness Status: Acute Priority: Medium Hospital Course - Lab Results Lab Results: Most Recent Lab Values WBC 16.7 K/uL (4.8-10.8) H D 06/11/16 08:29 RBC 5.26 Mil/uL (4.40-5.90) 06/11/16 08:29 Hgb 15.1 g/dL (12.0-18.0) 06/11/16 08:29 Hct 45.9 % (35.0-51.0) 06/11/16 08:29 MCV 87.3 fL (80.0-94.0) 06/11/16 08:29 MCH 28.8 pg (27.0-31.0) 06/11/16 08:29 MCHC 33.0 g/dL (33.0-37.0) 06/11/16 08: RDW 13.5 % (11.5-14.5) 06/11/16 08: Plt Count 301 K/uL (130-400) 06/11/16 08: MPV 8.0 fL (7.2-11.7) 06/11/16 08: Neut % (Auto) 89.4 % (50.0-75.0) H 06/11/16 08: Lymph % (Auto) 9.1 % (20.0-40.0) L 06/11/16 08: Page % (Auto) 1.4 % (0.0-10.0) 06/11/16 08: Eos % (Auto) 0.0 % (0.0-4.0) 06/11/16 08: Baso % (Auto) 0.1 % (0.0-2.0) 06/11/16 08: Neut # 14.9 K/uL (1.8-7.0) H 06/11/16 08: Lymph # 1.5 K/uL (1.0-4.3) 06/11/16 08: Page # 0.2 K/uL (0.0-0.8) 06/11/16 08: Eos # 0.0 K/uL (0.0-0.7) 06/11/16 08: Baso # 0.0 K/uL (0.0-0.2) 06/11/16 08: Neutrophils % (Manual) 89 % (50-75) H 06/11/16 08: Lymphocytes % (Manual) 8 % (20-40) L 06/11/16 08: Monocytes % (Manual) 3 % (0-10) 06/11/16 08: Platelet Estimate Normal (NORMAL) 06/11/16 08: RBC Morphology Normal 06/11/16 08:29 ESR 17 mm/hr (0-15) H 06/08/16 13:45 Sodium 140 mmol/L (132-148) 06/11/16 08:29 Potassium 3.8 mmol/L (3.6-5.2) 06/11/16 08: Chloride 103 mmol/L (98-107) 06/11/16 08:29 Carbon Dioxide 20 mmol/L (22-30) L 06/11/16 08:29 Anion Gap 21 (10-20) H 06/11/16 08:29 BUN 21 mg/dL (9-20) H 06/11/16 08:29 Creatinine 0.8 MG/DL (0.8-1.5) 06/11/16 08:29 Est GFR ( Amer) > 60 06/11/16 08:29 Est GFR (Non-Af Amer) > 60 06/11/16 08:29 Random Glucose 158 mg/dL (75-110) H 06/11/16 08:29 Calcium 9.0 mg/dl (8.6-10.4) 06/11/16 08:29 Phosphorus 3.4 mg/dL (2.5-4.5) 06/11/16 08:29 Magnesium 1.9 mg/dL (1.6-2.3) 06/11/16 08:29 Total Bilirubin 0.6 mg/dL (0.2-1.3) 06/11/16 08:29 AST 22 U/L (17-59) 06/11/16 08:29 ALT 17 U/L (21-72) L D 06/11/16 08:29 Alkaline Phosphatase 68 U/L (38-126) 06/11/16 08:29 C-React Prot High Sens 0.94 mg/L (1.00-3.00) L 06/08/16 13:45 Total Protein 7.6 g/dL (6.3-8.3) 06/11/16 08:29 Albumin 4.3 g/dL (3.5-5.0) 06/11/16 08:29 Globulin 3.3 gm/dL (2.2-3.9) 06/11/16 08:29 Albumin/Globulin Ratio 1.3 (1.0-2.1) 06/11/16 08:29 Free T4 0.89 ng/dL (0.78-2.19) 06/09/16 07:57 Total T3 1.65 nmol/L (1.49-2.60) 06/08/16 19:48 TSH 3rd Generation 3.68 mIU/L (0.46-4.68) 06/08/16 19:48 - Hospital Course Hospital Course: On admission: 46 year old male with PMHx significant for appendicitis presents with complaints of double vision as well as dizziness for 3 week duration. Patient states that he was hear last several weeks prior but denies much improvement. Patient was admitted 05/13 and had a workup which included ophthalmology as well as neurology. Patient states that he followed up with Ophthalmology with no significant findings. Patient admits to seeing a duplicate image of things in front of him ( one on top of the other). His dizziness is worsened by looking down and improved by looking up. At this time, he denies trauma, recent falls, headaches, chest pain, paresthesias, palpitations, muscle aches, eye discharge, nausea or vomiting at this time. Hospital Course: Patient known to the service after a similar course weeks prior. Patient states that upon prior discharge symptoms returned. Dr. Duarte of Neurology consulted; Dr. Escamilla of Ophthalmology consulted. Dr. Bojorquez of ENT consulted. ( No intervention at this time) Pertinent imaging to rule out aneurysm or cause of artery stenosis performed. Head CT (05/13/16) - negative, no intracranial bleed or acute pathology Brain MRI (06/08/16): no acute intracranial abnormality, Mild supratentorial white matter changes are strictly nonspecific, mild age advanced global parenchymal volume loss MRI Facial/Orbits (06/08/16): mild right orbital proptosis. No evidence of orbital mass, cavernous sinus thrombosis, orbital variz, orbital cellulitis or thryoid ophthalmology MRI cervical: small medium-sized broad based disc herniation contiguous with hypertrophic uncovertebral joints. Mild type 1 discogenic sclerosis. Carotid doppler also performed- Results to be obtained on outpatient basis Patient started on Decadron and then discharged with prednisone taper. Physical exam findings showed decreased ability to adduct right eye. Ophthalmology examined as well with recommendations to follow up outpatient. Patient's symptoms were alleviated with use of eye patch to cover affected eye. Routine labwork to rule out thyroid abnormalities . No significant findings. Patient to follow up outpatient for lipid panel, hgba1c and thyroid monitoring. Discharge instructions provided. This is a brief summary of events. For a complete course, refer to the medical record. Discharge Exam - Head Exam Head Exam: ATRAUMATIC, NORMAL INSPECTION, NORMOCEPHALIC - Eye Exam Eye Exam: EOMI, Normal appearance, PERRL Pupil Exam: NORMAL ACCOMODATION Additional comments: decreased ability to adduct right eye - ENT Exam ENT Exam: Mucous Membranes Moist - Neck Exam Neck exam: Full Rom - Respiratory Exam Respiratory Exam: NORMAL BREATHING PATTERN, UNREMARKABLE. absent: Wheezes - Cardiovascular Exam Cardiovascular Exam: +S1, +S2 - GI/Abdominal Exam GI & Abdominal Exam: absent: Firm - Extremities Exam Extremities exam: full ROM - Back Exam Back exam: FULL ROM - Psychiatric Exam Psychiatric exam: Normal Affect, Normal Mood - Skin Skin Exam: Dry, Intact, Normal Color
[2016-06-11 20:33] VITALS: PULSE 86
--- NOTE | 2016-06-14 17:35 | VASCLAB ---
PROCEDURE: HISTORY: Recurrent diplopia COMPARISON: No previous carotid duplex exam. CTA of the neck completed on 06/09/2016. TECHNIQUE: Grayscale and duplex Doppler evaluation of the cervical carotid and vertebral arteries were performed. The common carotid, carotid bifurcations and cervical Internal Carotid Artery (ICA) and proximal External Carotid Artery (ECA) were evaluated. The vertebral arteries were evaluated for gross patency and flow direction. Report prepared by DELVIN Barrios FINDINGS: RIGHT CAROTID ARTERIES: 1. Common Carotid Artery: No significant focal plaque formation of the right common carotid artery. Maximum Peak Systolic velocity: 137 cm/sec: End-diastolic velocity 22 cm/sec. 2. Carotid Bifurcation: Mild heterogeneous plaque formation. Maximum Peak Systolic velocity: 66 cm/sec: End-diastolic velocity 13 cm/sec. 3. Internal Carotid Artery: Minimal homogeneous plaque. 3.1. Proximal Segment: Peak systolic velocity 70 cm/sec: End-diastolic velocity 30 cm/sec - % stenosis 0-15% 3.2. Middle Segment: Peak systolic velocity 75 cm/sec: End-diastolic velocity 32 cm/sec - % stenosis 0-15% 3.3. Distal Segment: Peak systolic velocity 69 cm/sec: End-diastolic velocity 28 cm/sec - % stenosis 0-15% 4. External Carotid Artery: No significant focal plaque formation. Peak systolic velocity 93 cm/sec 5. ICA/CCA Ratio: 0.8 LEFT CAROTID ARTERIES: 1. Common Carotid Artery: No significant focal plaque formation of the left common carotid artery. Maximum Peak Systolic velocity: 118 cm/sec: End-diastolic velocity 25 cm/sec. 2. Carotid Bifurcation: Mild heterogeneous plaque formation. Maximum Peak Systolic velocity: 79 cm/sec: End-diastolic velocity 22 cm/sec. 3. Internal Carotid Artery: Minimal homogeneous plaque. 3.1. Proximal Segment: Peak systolic velocity 80 cm/sec: End-diastolic velocity 27 cm/sec - % stenosis 0-15% 3.2. Middle Segment: Peak systolic velocity 68.8 cm/sec: End-diastolic velocity 28.4 cm/sec - % stenosis 0-15% 3.3. Distal Segment: Peak systolic velocity 81.7 cm/sec: End-diastolic velocity 25.2 cm/sec - % stenosis 0-15% 4. External Carotid Artery: No significant focal plaque formation. Peak systolic velocity 101 cm/sec 5. ICA/CCA Ratio: 1.0 VERTEBRAL ARTERIES: 1. Right Vertebral Artery: The right vertebral artery flow direction is antegrade. 2. Left Vertebral Artery: The left vertebral artery flow direction is antegrade. OTHER FINDINGS: 1. Right Brachial Blood pressure: Unable to obtain due to IV 2. Left Brachial Blood pressure: 135 mmHg. IMPRESSION: RIGHT: Duplex scan does not suggest hemodynamically significant stenosis of the right extracranial carotid arteries. LEFT: Duplex scan does not suggest hemodynamically significant stenosis of the left extracranial carotid arteries.
== END 2016-06-11 19:12 | disposition home or self-care (01) | DRG 47 ==
LOC: C.ER 11:38 → C.9E 14:16 → C.6T 18:18 → OBSVTOIN 06-11 10:18
PROVIDERS: ADMIT Hospitalist; ATTEND Hospitalist
DX: H05.20 Unspecified exophthalmos (principal); E78.1 Pure hyperglyceridemia; H53.2 Diplopia; R42 Dizziness and giddiness; Z83.3 Family history of diabetes mellitus; R73.02 Impaired glucose tolerance (oral)